=== PATIENT | female | born 1985 | race Caucasian/White ===

== ENCOUNTER 2023-01-28 09:49 | Outpatient (CLI) | payer OTHER, SELFPAY ==
--- NOTE | 2023-01-28 11:00 | NEURO_ITS ---
Impression: # Complains of numbness of hands. # Mild right Carpal Tunnel Syndrome. # No ulnar neuropathy. # Needle/EMG exam not requested. Nerve Conduction Studies Anti Sensory Summary Table Stim Site NR Peak (ms) P-T Amp (?V) Site1 Site2 Delta-P (ms) Dist (cm) John (m/s) Left Median Anti Sensory (2-3nd Digit) Wrist 2.8 73.9 Wrist 2-3nd Digit 2.8 14.0 50 Wrist 2.8 63.5 Wrist 2-3nd Digit 2.8 14.0 50 Right Median Anti Sensory (2-3nd Digit) Wrist 3.7 35.6 Wrist 2-3nd Digit 3.7 14.0 38 Wrist 3.8 30.9 Wrist 2-3nd Digit 3.7 14.0 38 Left Radial Anti Sensory (Base 1st Digit) Wrist 1.9 26.5 Wrist Base 1st Digit 1.9 0.0 Right Radial Anti Sensory (Base 1st Digit) Wrist 2.0 32.5 Wrist Base 1st Digit 2.0 0.0 Left Ulnar Anti Sensory (5th Digit) Wrist 2.0 89.2 Wrist 5th Digit 2.0 14.0 70 Right Ulnar Anti Sensory (5th Digit) Wrist 2.1 76.4 Wrist 5th Digit 2.1 14.0 67 Motor Summary Table Stim Site NR Onset (ms) O-P Amp (mV) Site1 Site2 Delta-0 (ms) Dist (cm) John (m/s) Left Median Motor (Abd Poll Brev) Wrist 2.8 4.0 Elbow Wrist 4.6 28.0 61 Elbow 7.4 2.5 Right Median Motor (Abd Poll Brev) Wrist 3.6 3.6 Elbow Wrist 4.9 28.0 57 Elbow 8.5 1.2 Left Ulnar Motor (Abd Dig Minimi) Wrist 2.4 7.4 A Elbow Wrist 4.9 29.0 59 A Elbow 7.3 5.2 Right Ulnar Motor (Abd Dig Minimi) Wrist 2.1 6.5 A Elbow Wrist 5.2 29.0 56 A Elbow 7.3 5.0 F Wave Studies NR F-Lat (ms) L-R F-Lat (ms) Left Median (Mrkrs) (Abd Poll Brev) 26.39 0.50 Right Median (Mrkrs) (Abd Poll Brev) 26.89 0.50 Left Ulnar (Mrkrs) (Abd Dig Min) 26.95 0.39 Right Ulnar (Mrkrs) (Abd Dig Min) 26.56 0.39 MTDD
== END 2023-01-28 09:50 | disposition home or self-care (01) ==
PROVIDERS: PCP Family Medicine; Visit Provider Physician Assistant
DX: G56.01 Carpal tunnel syndrome, right upper limb (principal)
CPT/HCPCS: 95911

== ENCOUNTER 2023-02-13 15:26 | Outpatient (CLI) | payer OTHER, SELFPAY | END 2023-02-13 15:27 | disposition home or self-care (01) | LOC: ANHLAB 15:28 | PROVIDERS: PCP Family Medicine; Visit Provider Obstetrics & Gynecology | DX: Z01.812 Encounter for preprocedural laboratory examination (principal); R10.2 Pelvic and perineal pain | CPT/HCPCS: 36415; 86850; 86900; 86901 ==

== ENCOUNTER 2023-02-14 01:29 | Day surgery (SDC) | payer OTHER, SELFPAY ==
[2023-02-05 17:12] VITALS: BMI 29.2
--- NOTE | 2023-02-05 17:40 | PC.NURSE ---
Report to the Outpatient Waiting Room, entrance under the green pavilion located off [facility], at 0630 on 02-14-23. Planned Procedure Time: 0830. Time changes happen often and if your time is changed the preop area will call you the afternoon before. - You and your visitor will be asked to self-screen and do not enter if you have any COVID symptoms. - A mask is optional within the hospital at this time. Patients may have clear liquids (water, carbonated beverages, clear teas, apple juice) until 3 hours prior to surgery with a maximum of 20 ounces. 0530 - No food from midnight until time of surgery - Infants may have breast milk until 4 hours before surgery, formula 6 hours prior to surgery. - Children will be allowed to drink immediately following surgery. If applicable, please bring a bottle or sippy cup to assist with drinking. Juice, water, soda, and popsicles are readily available. For infants on formula, please bring formula the day of surgery. Pacifiers are allowed. Take the following medications with a SIP of water the morning of surgery: bupropion, Symbicort; bring albuterol inhaler DOS DO NOT STOP ANY OF YOUR OTHER PRESCRIPTION MEDICATIONS PRIOR TO SURGERY ?EXCEPT THE FOLLOWING Medications to discontinue per physician: N/A Please no make-up, nail urdu, hairspray, perfume, deodorant, or body powder the day of surgery. No jewelry (including any body piercings) or valuables the day of surgery, leave them at home. Please take a shower or bath the night before, or the morning of, surgery with an antibacterial soap. Wear comfortable, loose fitting clothing. Children are encouraged to wear pajamas. - Jewelry must be removed prior to entering the operating room. Rings and piercings that are not removed may be cut off. - The hospital will not accept responsibility for valuables. - Please leave all valuables, including medications, at home the day of surgery. If you are going home after surgery, a licensed yard driver must drive you home. - NO public transportation without another adult if you receive anesthesia. - We recommend that an adult stay with you for 24 hours following discharge. - We also recommend that you do not drive, make important decision, drink alcoholic beverages, or take any drugs that were not prescribed by your health care provider for at least 24 hours after your discharge time. For Pediatric surgeries, we recommend two adults accompany the child home. Follow any additional instructions given to you from your surgeon. If you or anyone in your household have experienced Covid symptoms in the past week, please notify your surgeon or the nurse liaison at the phone number below for possible testing. Telephone instructions given to Evi Mac and asked if any additional questions and then verbalized understanding. Patient advised to call surgeon office or pre surgery nurse liaison [phone] if any additional questions.
--- NOTE | 2023-02-11 12:06 | PM.IMHP ---
H&P: HPI History of Present Illness Date/Time: 02/11/23 12:06 Chief Complaint: Pelvic pain Narrative: This is a 37 female 1 para admitted for diagnostic laparoscopy secondary to pelvic. She had ultrasound which did not show much of anything she has had negative STD testing. She will undergo a diagnostic laparoscopy. Risks and benefits reviewed including exclusive of , aspiration bleeding, transfusion, perforation injury to bowel, bladder, ureters, or other internal organs with the need for open laparotomy. She received the ACOG handout entitled laparoscopy. She had all questions answered. She asked to proceed [facility] Social History Social History Smoking packs per day: 0.75 Smoking cigarettes per day: 15.0 Years smoked: 20 Smoking pack-years: 15.00 Smoking status: Current every day smoker Tobacco type: cigarettes Second hand tobacco smoke exposure: No Alcohol intake: current Drinks per week: 6 Alcohol use details: occasionally Substance use: never Substance use type: marijuana Living arrangements: with family Spiritual care concerns: No Meds Home Medications and Allergies Home Medications Medication Instructions Recorded Confirmed Type albuterol sulfate 2.5 mg/3 mL 2.5 mg continuous nebulization QID 02/05/23 02/05/23 History (0.083 %) solution for nebulization albuterol sulfate 90 mcg/actuation 2 puff inhalation Q6H PRN 02/05/23 02/05/23 History aerosol inhaler Shortness Of Breath Or Wheezing budesonide-formoterol HFA 160 2 puff inhalation BID 02/05/23 02/05/23 History mcg-4.5 mcg/actuation aerosol inhaler (Symbicort) bupropion HCl 150 mg tablet,12 hr 150 mg PO DAILY 02/05/23 02/05/23 History sustained-release Allergies Allergy/AdvReac Type Severity Reaction Status Date / Time No Known Allergies Allergy Mild Verified 02/05/23 17:07 Exam Const: General: cooperative, healthy appearing, comfortable and average body habitus Orientation/consciousness: oriented to person, oriented to place and oriented to time HENMT: Head: normal to inspection Resp: Effort & Inspection: normal respiratory effort Cardio: Rate: regular rate Rhythm: regular rhythm Heart sounds: S1 normal heart sound present and S2 normal heart sound present GI: Inspection: normal to inspection : External Female Exam: normal external appearance Speculum Exam - Vagina: normal appearance of the vagina Speculum Exam - Cervix: normal appearance of the cervix Bimanual exam- vagina & uterus: uterine size normal Bimanual Exam- Adnexa, other: tender bilaterally Assessment and Plan Assessment and plan (1) Pelvic pain: Code(s): R10.2 - Pelvic and perineal pain Status: Acute Plan Diagnostic laparoscopy
[2023-02-14] VITALS (8 sets, daily range): BP systolic 96–126; BP diastolic 62–83; PULSE 52–74; RESP 13–18; TEMP 36.2–36.4; O2SAT 93–100
--- NOTE | 2023-02-14 06:18 | WPDHPUPDATE1 ---
History and Physical Update Update Date/Time: 02/14/23 06:18 History and Physical has been reviewed, including an updated exam of the patient. There are NO changes in the patient's condition. Risks, benefits, and alternatives have been discussed and questions answered. Patient agrees to proceed with procedure.
--- NOTE | 2023-02-14 08:10 | P.PNAN_ITS ---
Anes - Initial Pre Proc Eval Procedure: Operation Date: 02/14/23 08:30 Proposed Procedures p Diagnostic Laparoscopy - Jan Ragland MD Date/Time: 02/14/23 08:10 Surgeon: Jan Ragland MD Pre Op Diagnosis: Pelvic Pain, Irg Bleeding Patient Data Age: 37 Gender: F Height: 1.63 m Weight: 77.11 kg Allergies Allergy/AdvReac Type Severity Reaction Status Date / Time No Known Allergies Allergy Mild Verified 02/05/23 17:07 Home Medications Medication Instructions Recorded Confirmed Type albuterol sulfate 2.5 mg/3 mL 2.5 mg continuous nebulization QID 02/05/23 02/05/23 History (0.083 %) solution for nebulization albuterol sulfate 90 mcg/actuation 2 puff inhalation Q6H PRN 02/05/23 02/05/23 History aerosol inhaler Shortness Of Breath Or Wheezing budesonide-formoterol HFA 160 2 puff inhalation BID 02/05/23 02/05/23 History mcg-4.5 mcg/actuation aerosol inhaler (Symbicort) bupropion HCl 150 mg tablet,12 hr 150 mg PO DAILY 02/05/23 02/05/23 History sustained-release hydrocodone 5 mg-acetaminophen 325 1 tablet PO Q4H PRN pain #20 tabs 02/14/23 Rx mg tablet Patient hx anesthesia problems: none Family hx anesthesia problems: none Results Review: All pre-operative results and documents have been reviewed as part of the pre- operative evaluation. [facility] Social History Social History Smoking packs per day: 0.75 Smoking cigarettes per day: 15.0 Years smoked: 20 Smoking pack-years: 15.00 Smoking status: Current every day smoker Tobacco type: cigarettes Second hand tobacco smoke exposure: No Alcohol intake: current Drinks per week: 6 Alcohol use details: occasionally Substance use: never Substance use type: marijuana Living arrangements: with family Spiritual care concerns: No Anes - Eval Final PreProcedure Day of Procedure 02/14/23 08:10 Patient weight: overweight Heart: regular rate and rhythm Lungs: decreased breath sounds Airway: Mallampati scale class II Neurological: alert and oriented Last oral intake: >/= 8 hours ASA classification: III Emergent: no Anesthetic plan: proceed Anesthesia type and monitoring: general ETT and standard monitoring Results Review: All pre-operative results and documents have been reviewed as part of the pre- operative evaluation. Informed Consent: The patient's anesthetic plan and its attendant risks and benefits were discussed with the patient/family/POA. Questions were solicited and answers provided to the satisfaction of the patient/family/POA.
[2023-02-14] MEDS: LACTATED RINGERS 1,000 ML 30 ML IV CONT (08:30)
[2023-02-14] MEDS: KETOROLAC 15 MG/ML VIAL (*BKC) IV PUSH (08:30)
[2023-02-14] MEDS: ACETAMINOPHEN 500 MG TABLET 1000 MG PO (08:30)
--- NOTE | 2023-02-14 08:52 | W.PM.PROC2 ---
Procedure Note - Detailed Date of Procedure 02/14/23 Pre-op Diagnosis Pelvic Pain, Irg Bleeding Post-op Diagnosis Other (Endometriosis) Procedure Performed laparoscopic destruction of endometriosis Surgeon Jan Ragland MD Anesthesia General Indications this is the 37 year female with pelvic Findings endometrial implants along uterosacral ligaments. Small areas of endometriosis were seen on the ovaries. Normal-appearing uterus ovaries and tubes otherwise. The gallbladder appeared surgically absent Description of Procedure patient was prepped and draped in the normal sterile fashion placed in the dorsal lithotomy position. Under excellent general trach anesthesia weighted speculum placed in posterior fornix vagina. Anterior lip of the cervix grasped with single-tooth tenaculum. Sandoval's cannula inserted the cervix and then attached to the single-tooth to be used later for uterine manipulation. After emptying the bladder clear urine the weighted speculum was removed and the gloves were changed. A supraumbilical incision made the Veress needle passed in the abdomen. Abdomen filled with CO2 gas [id number]. The 5mm trocar advanced under direct visualization with the Optiview and no injury seen. Gas reattached patient placed in Trendelenburg. A suprapubic incision made the 5mm trocar advanced under direct visualization assuring injury. The above findings were seen in photo documentation undertaken using point cautery at 35 w per 2nd, this area of endometriosis were destroyed with monopolar cautery. On the ovaries were small pinpoint areas of endometriosis in these were individually burned at 35 w per 2nd with monopolar cautery. The remainder the pelvis appeared within normal limits. The gallbladder appeared surgically absent. The liver edge appeared within normal limits. The lower site removed. The gas removed from the abdomen. The upper site removed. The incisions closed with 4 Monocryl and glue after gas removed from the abdomen. Patient went recovery in satisfactory condition. All sponge, needle, instrument counts were correct. Estimated Blood Loss 5 Drains No Packing No Pathology None sent Complications No immediate complications Condition Stable Disposition PACU
[2023-02-14] MEDS: fentaNYL CITRATE INJ (*CRX) 100 MCG/2 ML VIAL 25 MCG IV PUSH ×3 (09:44→09:55)
[2023-02-14] MEDS: oxyCODONE HCL (*CRX) 5 MG TAB IR PO (10:30)
== END 2023-02-14 11:10 | disposition home or self-care (01) ==
PROVIDERS: PCP Family Medicine; Visit Provider Obstetrics & Gynecology
PROC: (CPT 49320; principal; 2023-02-14 08:30)
DX: N80.103 Endometriosis of bilateral ovaries, unspecified depth (principal); N80.3C3 Endometriosis of bilateral uterosacral ligament(s), unspecified depth; N93.9 Abnormal uterine and vaginal bleeding, unspecified; Z79.51 Long term (current) use of inhaled steroids; F17.210 Nicotine dependence, cigarettes, uncomplicated
CPT/HCPCS: 58662; A9270; J0330; J1100; J1885; J2250; J2405; J2704; J3010; J7120

== ENCOUNTER 2023-05-19 09:40 | Outpatient (CLI) | payer OTHER, SELFPAY ==
--- NOTE | ~2023-05-19 | CT_ITS ---
CT Scan of the Chest without Contrast: Clinical Indication: Shortness of breath Technique: Contiguous sections were acquired throughout the chest without intravenous contrast. Dose reduction technique was used on this scan by utilizing automated exposure control and iterative recon struction technique. The dose-length product (DLP) was 238.44 mGy-cm. Findings: There is no evidence of any significant mediastinal, hilar or axillary lymphadenopathy. The mediastin al soft tissues appear normal. There is no evidence of pleural or pericardial effusion. There are probable extensive tiny tree-in-bud opacities and irregular groundglass centrilobular nodul es in the right upper lobe, to 6 cm and the left upper lobe and right lower lobe. Images through the upper abdomen reveal no abnormalities. Impression: Extensive subtle tree-in-bud opacities and centrilobular nodules, as detailed above. Findings most li kev represent small airways infectious process. Reviewed, dictated and finalized at [facility]. [employer]ALL IN[employer]ATIONS MECH[employer]IC Impression: Extensive subtle tree-in-bud opacities and centrilobular nodules, as detailed teetee kirk. Findings most likely represent small airways infectious process.
== END 2023-05-19 09:41 | disposition home or self-care (01) ==
LOC: CHSIMG 09:43
PROVIDERS: PCP Family Medicine; Visit Provider Family Medicine
DX: R06.02 Shortness of breath (principal)
CPT/HCPCS: 71250

== ENCOUNTER 2023-12-08 11:29 | Outpatient (CLI) | payer OTHER, SELFPAY ==
[2023-12-08 11:48] LABS: Basophils Absolute Auto 0.1 K/mm3 (0.0-0.1); Basophils Percent Auto 0.7 % (0.2-1.2); Eosinophils Absolute Auto 0.3 K/mm3 (0-0.3); Eosinophils Percent Auto 2.3 % (0-4.4); Hematocrit 40.7 % (37.0-47.0); Hemoglobin 13.8 g/dL (12.0-15.0); Immature Granulocyte Absolute 0.05 K/mm3 (0.00-0.031); Immature Granulocyte Percent A 0.4 % (0-0.5); Lymphocytes Absolute Auto 3.03 K/mm3 (0.9-3.2); Lymphocytes Percent Auto 22.7 % (18.3-44.2); Mean Corpuscular HGB Conc 33.9 g/dl (32-36); Mean Corpuscular Hemoglobin 31.7 pg (26-34); Mean Corpuscular Volume 93.6 fl (80-100); Mean Platelet Volume 8.7 fl (7.4-10.4); Monocytes Absolute Auto 0.7 K/mm3 (0.1-0.6); Monocytes Percent Auto 5.2 % (2.6-8.5); Neutrophils Absolute Auto 9.2 K/mm3 (1.3-6.7); Neutrophils Percent Auto 68.7 % (45.5-73.1); Platelet Count Result 380 k/mm3 (150-375); Red Blood Count 4.35 M/mm3 (4.2-5.4); Red Cell Distribution Width 12.4 % (11.5-14.5); White Blood Count 13.4 K/mm3 (4.5-10.0)
[2023-12-08 12:31] LABS: Alanine Aminotransferase 23 U/L (6-35); Albumin Level 4.5 g/dL (3.5-5.1); Alkaline Phosphatase 48 U/L (38-126); Anion Gap 9 mmol/L (4-12); Aspartate Amino Transferase 22 U/L (14-36); Bilirubin,Total 0.4 mg/dL (0.2-1.3); Blood Urea Nitrogen 11 mg/dL (7-17); CRP 0.7 mg/dL (<1.0); Calcium 9.2 mg/dL (8.4-10.2); Carbon Dioxide 26 mmol/L (22-30); Chloride 102 mmol/L (98-107); Estimated Glomerular Filt Rate > 60; Glucose 84 mg/dL (65-110); Potassium 3.7 mmol/L (3.4-5.0); Sodium 137 mmol/L (137-145)
== END 2023-12-08 11:30 | disposition home or self-care (01) ==
LOC: ANHLAB 11:30
PROVIDERS: PCP Family Medicine; Visit Provider Internal Medicine Hematology & Oncology
DX: D18.1 Lymphangioma, any site (principal)
CPT/HCPCS: 36415; 80053; 85025; 86140

== ENCOUNTER 2024-08-03 07:55 | Outpatient (CLI) | payer MEDICAID, SELFPAY ==
--- NOTE | ~2024-08-03 | CT_ITS ---
CT of the Abdomen and Pelvis: Indication: Lymphangioma Technique: 2.5 mm axial scans were obtained through the abdomen and pelvis following intravenous adm inistration of 100 cc of Omnipaque 350. Dose reduction technique was used on this scan by utilizing a utomated exposure control and iterative reconstruction technique. The dose-length product (DLP) was 7 47.52 mGy-cm. COMPARISON: 05/19/2023 Findings: Scans through the lung bases are unremarkable. The liver, spleen, pancreas, adrenals and kidneys are within normal limits. Cholecystectomy clips are present. Stable multiloculated cystic mass in the left upper quadrant of the splenic hilum region pa ncreatic tail. No evidence of aortic aneurysm. No lymphadenopathy. No bowel obstruction or bowel wall thickening. There is no evidence to suggest acute appendicitis. Images through the pelvis were performed. Urinary bladder unremarkable. No pelvic mass seen. No ascit es. Impression: Stable multiloculated cystic mass at the left upper quadrant, as above, compatible with hemangioma. Reviewed, dictated and finalized at location . [employer] Impression: Stable multiloculated cystic mass at the left upper quadrant, as above, compati ble with hemangioma.
--- OUTSIDE RECORDS SUMMARY | 2024-08-03 08:06 | XMS_ITS | Encounter Summary ---
Author Organization [facility] Address [facility] 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
--- OUTSIDE RECORDS SUMMARY | 2024-08-03 08:06 | XMS_ITS | Referral Summary ---
Author Organization [facility] Address [address] [place] [address] Care Team Providers Care Web Developer Name Role Phone Leonel Degroot MD Primary Care Provider [phone] Source Comments [facility],non-owned Affiliates and Associated Physician Practices is amultiple site organization consisting of ambulatory clinics and hospital sitesin [place], [place], [place] and [place]. This disclosure is being madepursuant to the Care Everywhere program and may not contain all information available regarding this patient. Last updated 18.[facility] Dash Allergies No known active allergies Medications * Be aware that medications may not be up to date on this document. Alwaysverify current medications with the patient. Medication Sig Dispensed Refills Start Date End Date Status PROAIR HFA 108 (90 BASE) MCG/ACT inhaler Inhale 2 puffs by mouth as needed 11/10/2017 Active erythromycin (ERYDERM) 2 % solutionIndications:Hi dradenitis suppurativa Apply to armpits area daily. 30 days supply. 60 mL 3 02/05/2018 Active Active Problems Problem Noted Date Diagnosed Date Hidradenitis suppurativa 02/05/2018 Social History Tobacco Use Types Packs/Day Years Used Date Smoking Tobacco: Every Day Cigarettes 1 20 Smokeless Tobacco: Never Alcohol Use Standard Drinks/Week Comments Yes 5 (1 standard drink = 0.6 oz pur e alcohol) Ocassionally Sex and Gender Information Value Date Recorded Sex Assigned at Not on file Gender Identity Not on file Sexual Orientation Not on file Plan of Treatment Not on file Care Teams Web Developer Relationship Specialty Start Date End Date Leonel Degroot MD [address] [place] [id number] PCP - General 02/05/18
--- OUTSIDE RECORDS SUMMARY | 2024-08-03 08:06 | XMS_ITS ---
Author Organization Unknown Address [address] [place] [phone] Phone Care Team Providers Care Assembler Lay Ups Name Role Phone JOSE R TALAMANTES Attending Unavailable TALISHA Hernandes Primary Unavailable Immunization Immunization Date Status Additional Notes Code Code System DTP 1983 Completed CVX DTP 02/11/1984 Completed CVX DTP 08/25/1984 Completed CVX DTP 04/11/1987 Completed CVX DTP 10/16/1988 Completed CVX OPV 1983 Completed CVX OPV 02/11/1984 Completed CVX OPV 08/25/1984 Completed 02 CVX OPV 04/11/1987 Completed 02 CVX OPV 10/16/1988 Completed 02 CVX MMR 12/06/1986 Completed 03 CVX MMR 02/23/1993 Completed 03 CVX Hep B, adolescent or pediatric 02/28/1998 Completed 08 CVX Hep B, adolescent or pediatric 03/28/1998 Completed 08 CVX Hep B, adolescent or pediatric 03/03/2001 Completed 08 CVX Td (adult), 2 Lf tetanus toxoid, preservative free, adsorbed 02/28/1998 Completed 09 CVX Results BUN/CREAT - Collect Date/David e: 10/30/2023 10:55 [facility] ID: [id number] [place] [address], [id number] LOINC: 3097-3 Test Value Unit Reference Range Code Code System Flag BUN 14 mg/dL L=7 H=20 3094-0 LOINC CREATININE 0.50 mg/dL L=0.52 H=1.04 2160-0 LOINC L AGE 38 [address]-6 LOINC eGFR NON-AFR 145 ml/min eGFR AFR AMER 175 ml/min MRI ABDOMEN W+WO CONTRAST - Completed: 10/30/2023 10:46 LOINC: EXAM DESCRIPTION: MRI ABDOMEN W+WO CONTRAST REASON FOR STUDY: Renal protocol MRI w/wo contrast with delayed imaging. 09/29/23 CT demonstrated a 1.2 cm left renal fluid density focus and indeterminate nodules adjacent to the spleen; +/-2 yrs of epigastric/RUQ/LUQ sharp, intermittent pains, particularly after large meals; cholecystectomy in Apr; hx of endometriosis and polycystic ovarian syndrome. No traumatic incidents noted. Duration: 2 yrs of s/s, 1 mo. since incidental findings. Previous Surgery: CHOLECYSTECTOMY, UMBILICAL HERNIA REPAIR, AND ENDOMETRIAL ADHESION REMOVAL (ALL IN 2022). TECHNIQUE: MRI of the abdomen performed without and with intravenous contrast according to the renal protocol. All images stored on PACS. CONTRAST TYPE/DOSE: 15 mL of ProHance injected via left antecubital fossa vein COMPARISON: CT dated September 29, 2023 FINDINGS: LOWER CHEST: No effusion. LIVER: Normal size. No mass. No cysts. GALLBLADDER: Surgically absent BILE DUCTS: No intrahepatic or extrahepatic ductal dilatation. SPLEEN: Normal size. No focal lesions. PANCREAS: No masses. No adjacent inflammation or peripancreatic fluid collections. Pancreatic duct not dilated ADRENALS: Normal. KIDNEYS/URINARY TRACT: No solid masses. Bilateral cysts. No hydronephrosis or hydroureter. Symmetric enhancement. GI: No visualized abnormality. PERITONEUM: No ascites. RETROPERITONEUM: No mass or adenopathy. VASCULATURE: No abdominal aortic aneurysm. MUSCULOSKELETAL: No acute findings. OTHER: At the level of the nsplenic hilum there is a multilobulated T2 hyperintense cystic structure collectively measuring approximately 3.8 x 3.1 cm. There is no evidence of restricted diffusion. No microscopic or macroscopic fat. On precontrast T1 fat saturated sequences appears hypointense. There is no enhancement on postcontrast imaging. This is favored to represent a lymphangioma. IMPRESSION: ? ? Bilateral renal cysts. No concerning renal lesion identified. ? ? 3.8 x 3.1 cm multilobulated cystic structure at the level of the splenic hilum corresponding to area of concern on recent CT scan. This is favored to represent a lymphangioma. THIS IS AN ELECTRONICALLY VERIFIED FINAL REPORT 10/30/2023 1:38 PM - Electronically signed by Dustin Prado M.D. JA: CARL Report ID: [id number] Reading Location: [id number] Social History Type Status Start Date End Date Code Code Syst em Smoking History Unknown if ever smoked [id number] Sex Female Medications Medication Start Date End Date Route Frequency Dose Code Code System Medication Instructions Home Meds Albuterol Sulfate 0.5% Inhalation Solution 10/25/2021 Unknown INHALATION NEEDED 4 TIMES A DAY 1 unit(s) 685588 RxNorm 1 EACH INHALATION NEEDED 4 TIMES A DAY Ipratropium [place] terol Sulfate 0.5MG/3ML-3M G/3ML Inhalation Solution 10/25/2021 Unknown INHALATION EVERY 6 HOURS 3 unit(s) 5574452 RxNorm 3 EACH INHALATION EVERY 6 HOURS ProAir HFA 0.09MG/1Actu ation Inhalation Suspension 10/25/2021 Unknown INHALATION NEEDED 4 TIMES A DAY 2 unit(s) 349023 RxNorm 2 EACH INHALATION NEEDED 4 TIMES A DAY Symbicort 160/4.5 160MCG-4.5MC G/1 Actu Inhalation Aerosol Liquid 10/25/2021 Unknown INHALATION TWICE A DAY 2 unit(s) [id number] RxNorm 2 EACH INHALATION TWICE A DAY Wellbutrin SR 150MG Oral Tablet, Extended Release, 12 HR 10/25/2021 Unknown ORAL TWICE A DAY 150 MILLIGRAMS [id number] RxNorm TAKE 150 MILLIGRAMS ORAL TWICE A DAY Meloxicam 15MG Oral Tablet 12/28/2021 Unknown ORAL ONCE A DAY 15 MILLIGRAMS [id number] RxNorm TAKE 15 MILLIGRAMS ORAL ONCE A DAY Omeprazole 40MG Oral Capsule, Delayed Release 04/01/2022 Unknown ORAL ONCE A DAY 40 MILLIGRAMS [id number] RxNorm TAKE 40 MILLIGRAMS ORAL ONCE A DAY Hospital Discharge Instructions Should you have any questions prior to discharge, please contact a member of your healthcare team. If you have left the hospital and have any questions, please contact your primary care physician. Reason For Referral No Data Found Allergies and Adverse Reactions Allergy Substance Reaction Severity Start Date Concern Status Co de Code System No Known Drug Allergies Active [id number] SNOMED-CT Plan of Treatment Pinky Established Patient 025 Digital Razia Screen Bilateral (52935) Encounters Encounter Diagnosis Start Date Code Code Sys tem Abnormal findings on diagnos tic imaging of other abdominal regions, including retroperitoneum 10/30/2023 SNOMED-CT Personal Care Team Section Performer Name Performer Role Active Date Inactive Da te Imaging Narrative Notes
--- OUTSIDE RECORDS SUMMARY | 2024-08-03 08:06 | XMS_ITS ---
Author Organization Unknown Address [address] [place] [address] [phone] Phone Care Team Providers Care Assembly Detailer Name Role Phone SILVERIO SULLY Attending Unavailable TALISHA Hernandes Primary Unavailable Immunization [...] preservative free, adsorbed 02/28/1998 Completed 09 CVX Social History Type Status Start Date End Date Code Code Syst em Smoking History Unknown if ever smoked [id number] Sex Female Medications Medication Start Date End Date Route Frequency Dose Code Code System Medication Instructions Home Meds Albuterol Sulfate 0.5% Inhalation Solution 10/25/2021 Unknown INHALATION NEEDED 4 TIMES A DAY 1 unit(s) 012473 RxNorm 1 EACH INHALATION NEEDED 4 TIMES A DAY Ipratropium [place]-Albu terol Sulfate 0.5MG/3ML-3M G/3ML Inhalation Solution 10/25/2021 Unknown INHALATION EVERY 6 HOURS 3 unit(s) 5756746 RxNorm 3 EACH INHALATION EVERY 6 HOURS ProAir HFA 0.09MG/1Actu ation Inhalation Suspension 10/25/2021 Unknown INHALATION NEEDED 4 TIMES A DAY 2 unit(s) 321325 RxNorm 2 EACH INHALATION NEEDED 4 TIMES A DAY Symbicort 160/4.5 160MCG-4.5MC G/1 Actu Inhalation Aerosol Liquid 10/25/2021 Unknown INHALATION TWICE A DAY 2 unit(s) 4070970 RxNorm 2 EACH INHALATION TWICE A DAY Wellbutrin SR 150MG Oral Tablet, Extended Release, 12 HR 10/25/2021 Unknown ORAL TWICE A DAY 150 MILLIGRAMS [id number] RxNorm TAKE 150 MILLIGRAMS ORAL TWICE A DAY Meloxicam 15MG Oral Tablet 12/28/2021 Unknown ORAL ONCE A DAY 15 MILLIGRAMS [id number] RxNorm TAKE 15 MILLIGRAMS ORAL ONCE A DAY Omeprazole 40MG Oral Capsule, Delayed Release 04/01/2022 Unknown ORAL ONCE A DAY 40 MILLIGRAMS [id number] RxNorm TAKE 40 MILLIGRAMS ORAL ONCE A [...] Code System No Known Drug Allergies Active [id number] SNOMED-CT Plan of Treatment Terryroberto carlosjc Established Patient 025 Digital Razia Screen Bilateral (58523) Encounters Encounter Diagnosis Start Date Code Code Sys tem Chest pain, unspecified 01/27/2024 SNOM ED-CT Personal Care Team Section Performer Name Performer Role Active Date Inactive Da te
--- OUTSIDE RECORDS SUMMARY | 2024-08-03 08:06 | XMS_ITS | Clinical Summary ---
Author Organization [facility] Address [address] [place] [address] Care Team Providers Care Voice Network Engineer Name Role Phone Leonel Degroot MD Primary Care Provider [phone] [facility],non-owned Affiliates and Associated Physician Practices is amultiple site organization consisting of ambulatory clinics and hospital sitesin [place], [place], [place] and [place]. This disclosure is being madepursuant to the Care Everywhere program and may not contain all information available regarding this patient. Last updated 18.[facility] Allergies No known active allergies Medications * [...] Noted Date Diagnosed Date Hidradenitis suppurativa 02/05/2018 Family History Medical History Relation Name Comments Asthma Neg Hx CVA Neg Hx Cancer - Breast Neg Hx Cancer - Other Neg Hx Cancer - Skin, Melanoma Neg Hx Cancer - Skin, Non Melanoma Neg Hx Eczema Neg Hx Hemophilia Neg Hx Psoriasis Neg Hx Social History Tobacco Use Types Packs/Day Years Used Date Smoking Tobacco: Every Day Cigarettes 1 20 Smokeless Tobacco: Never Alcohol Use Standard Drinks/Week Comments Yes 5 (1 standard drink = 0.6 oz pur e alcohol) Ocassionally Sex and Gender Information Value Date Recorded Sex Assigned at Not on file Gender Identity Not on file Sexual Orientation Not on file Plan of Treatment Health Maintenance Due Date Last Done Comments LIPID TESTING 1983 MAMMOGRAM 1983 PAP SMEAR 1983 HIV SCREENING 1998 HEPATITIS C SCREENING 07/10/2001 DTAP/TDAP/TD VACCINES (1 - Tdap) 2002 HEPATITIS B VACCINE (1 of 3 - 19+ 3-dose series) 2002 PNEUMOCOCCAL VACCINE (1 of 2 - PCV) 2002 COVID-19 VACCINE (1 - 2023-2 5 season) 2024 INFLUENZA VACCINE (#1) 2024 DEPRESSION SCREENING 07/07/2024 ZOSTER VACCINE (1 of 2) 2033 HIB VACCINE Aged Out No longer eligi ble based on patient's age to complete this topic HPV VACCINE Aged Out No longer eligi ble based on patient's age to complete this topic MENINGOCOCCAL (Group B) VACCINE Aged Out No longer eligible based on patient's age to complete this topic MENINGOCOCCAL VACCINE Aged Out No marichuy crys eligible based on patient's age to complete this topic Care Teams Voice Network Engineer Relationship Specialty Start Date End Date Leonel Degroot MD [address] [place] [phone] PCP - General 02/05/18
--- OUTSIDE RECORDS SUMMARY | 2024-08-03 08:06 | XMS_ITS ---
Author Organization Unknown Address [address] [place] [address] [phone] Phone Care Team Providers Care Septic Tank Service Technician Name Role Phone HOLLI SAEED Attending Unavailable TALISHA Hernandes Primary Unavailable Immunization [...] Smoking History Unknown if ever smoked [id number] Sex Female Medications Medication Start Date End Date Route Frequency Dose Code Code System Medication Instructions Home Meds Albuterol Sulfate 0.5% Inhalation Solution 10/25/2021 Unknown INHALATION NEEDED 4 TIMES A DAY 1 unit(s) 036622 RxNorm 1 EACH INHALATION NEEDED 4 TIMES A DAY Ipratropium [place]-Albu terol Sulfate 0.5MG/3ML-3M G/3ML Inhalation Solution 10/25/2021 Unknown INHALATION EVERY 6 HOURS 3 unit(s) 9420147 RxNorm 3 EACH INHALATION EVERY 6 HOURS ProAir HFA 0.09MG/1Actu ation Inhalation Suspension 10/25/2021 Unknown INHALATION NEEDED 4 TIMES A DAY 2 unit(s) 161272 RxNorm 2 EACH INHALATION NEEDED 4 TIMES A DAY Symbicort 160/4.5 160MCG-4.5MC G/1 Actu Inhalation Aerosol Liquid 10/25/2021 Unknown INHALATION TWICE A DAY 2 unit(s) 7193822 RxNorm 2 EACH INHALATION TWICE A DAY Wellbutrin SR 150MG Oral Tablet, Extended Release, 12 HR 10/25/2021 Unknown ORAL TWICE A DAY 150 MILLIGRAMS [id number] RxNorm TAKE 150 MILLIGRAMS ORAL TWICE A DAY Meloxicam 15MG Oral Tablet 12/28/2021 Unknown ORAL ONCE A DAY 15 MILLIGRAMS [id number] RxNorm TAKE 15 MILLIGRAMS ORAL ONCE A DAY Omeprazole 40MG Oral Capsule, Delayed Release 04/01/2022 Unknown ORAL ONCE A DAY 40 MILLIGRAMS [id number] RxNorm TAKE 40 MILLIGRAMS ORAL ONCE A [...] Code System No Known Drug Allergies Active [id number] [facility]-CT Plan of Treatment Terryroberto carlosjc Established Patient 025 Digital Razia Screen Bilateral (56161) Encounters Encounter Diagnosis Start Date Code Code Sys tem Canceled operative procedure 11/19/2023 [id number] [facility]-CT Personal Care Team Section Performer Name Performer Role Active Date Inactive Da kavon
--- OUTSIDE RECORDS SUMMARY | 2024-08-03 08:06 | XMS_ITS | Patient Health Summary ---
Author Organization [facility] Address [address] [place] [address] Care Team Providers Care Technical Operator Name Role Phone Leonel Degroot MD Primary Care Provider [phone] Note from [facility],non-owned Affiliates and Associated Physician Practices is amultiple site organization consisting of ambulatory clinics and hospital sitesin [place], [place], [place] and [place]. This disclosure is being madepursuant to the Care Everywhere program and may not contain all information available regarding this patient. Last updated 18.[facility] Done In :60 Seconds Allergies No known active allergies Medications * Be aware that medications may not be up to date on this document. Alwaysverify current medications with the patient. * PROAIR HFA 108 (90 BASE) MCG/ACT inhaler(Started 11/10/2017) Inhale 2 puffs by mouth as needed * erythromycin (ERYDERM) 2 % solution(Started 02/05/2018) Apply to armpits area daily. 30 days supply. 3 refills remaining Active Problems Problem Noted Date Diagnosed Date [...] on file Sexual Orientation Not on file Care Teams Technical Operator Relationship Specialty Start Date End Date Leonel Degroot MD [address] [place] [phone] [facility] - General 02/05/18
--- OUTSIDE RECORDS SUMMARY | 2024-08-03 08:06 | XMS_ITS | Data Portability ---
Author Organization [facility] [employer], 800 [facility] Neurology ([place]) Address [address] [address] Care Team Providers Care Bread Packer Name Role Phone SUN [place]K Primary Care Provider Assessment No assessment recorded. Plan of Treatment Reminders Order Date Submit Date Provider Last Modified By Organization Details Last Modified Time Details Appointments Establ edel barnes 10.EST 2024 09:30A M Dr. Melva Goodwin Not available Not available Not available Lab None record ed. Referral None record ed. Procedures None record ed. Surgeries None record ed. Imaging None record ed. Medication Orders None record ed. Patient TargetsNo targets recorded. Patient InstructionsNo instructions recorded. Reason for Referral None Reported. Results Created Date Observation Date Name Description Value Unit Range Abnormal Flag Note LastModifiedBy Organization Detail LastModifiedTime 02/02/20 24 02/02/2024 tuan tammymarcella cardonagr am, routi ne ECG, 12 leads min No observ ation record ed. [facility] Only - [facility] [address] [address], [place], [address], 02/04/2024 16:05:41 02/26/20 24 02/19/2024 laura michelle* No observ ation record ed. [email or web address] Not Available 2023 11:39:16 02/27/20 laura michelle* Conclu myron: 1. Exerci se EKG testin g sugges tive of ischem ia. 2. Averag e exerci se capaci ty. 3. Hypert ensive respon se to exerci se. 4. Please consid er CTA borja ry Interp retati on: Exerci se EKG testin g sugges tive of ischem ia. Baseli ne EKG: Sinus rhythm withou t any signif icant ST-T wave change s Stress EKG: Border line ST depres myron in infero latera l leads Exerci se Durati on: 8 minute s 9 second s METS Score: 9 Exerci se capaci ty: Averag e BP respon se: Hypert ensive Target heart rate: 153 (85% of age predic mary heart rate) Arrhyt hmias: None Sympto ms: Dyspne a and fatigu e tcowden Not Available 2023 09:30:37 03/11/20 24 03/10/2024 trans -thor acic echoc ardio gram (TTE) (PROC ) [facility] [address] [facility] [address] Adult Echoca rdiogr am Report Name: Julio PHILLIPS Study Date: 2023 : 1985 [id number] Gender : Female Age: 38 yrs Height : 64 in Weight : 190 lb BSA: 1.9 m2 Orderi ng Physic winsome: Ivy Goodwin MD Reason For Study: Chest Pain R07.9 Patien t Locati on: CARDIO LOGY Indica tion: Sonogr apher: PC Interp retati on Summar y The right ventri anna is normal in size and functi on. Left Ventri cular Ejecti on Fracti on = 56 %. Left ventri cular systol ic functi on is normal . PROCED URE DETAIL S: A comple te transt horaci c echoca rdiogr am was perfor med (2D; M-mode ; spectr al and color flow Dopple r). The study was techni eric adequa te. LEFT VENTRI ANNA: The left ventri anna is dilate d. There is normal left ventri cular wall thickn ess. The left ventri cular mass index is normal when correc mary for BSA and gender . Left Ventri cular Ejecti on Fracti on = 56 %. Left ventri cular systol ic functi on is normal . No region al wall motion abnorm alitie s noted. LEFT ATRIUM /ATRIA L SEPTUM : The left atrial volume index is normal by BSA and gender . No eviden ce for atrial shunti ng by color Dopple r. RIGHT ATRIUM : The right atrial volume index is normal when correc mary for BSA and gender . RIGHT VENTRI ANNA: TAPSE is normal at 1.8cm (> or =1.7cm is normal ). The right ventri anna is normal in size and functi on. AORTIC VALVE: The aortic valve is not well visual ized. The aortic valve leafle ts are thin and pliabl e. The aortic valve opens well. There is no eviden ce of aortic stenos is. There is no aortic regurg itatio n noted. MITRAL VALVE: The mitral valve leafle ts are thin and pliabl e. The mitral valve opens well. There is no mitral valve stenos is. There is trace mitral regurg itatio n. TRICUS PID VALVE: The tricus pid valve leafle ts are thin and pliabl e. There is no tricus pid stenos is. Estima mary right atrial pressu re is 3 mmHg. There is mild tricus pid regurg itatio n. Right ventri cular systol ic pressu re as measur ed by Dopple r is 10.1 mmHg. Right ventri cular systol ic pressu re is normal at <20 mmHg. PULMON IC VALVE: The pulmon ic valve is not well visual ized. There is no pulmon ic valvul ar stenos is. There is no pulmon ic valvul ar regurg itatio n noted on this exam. ARTERI ES: The sinus( es) of Valsal va measur es 3.3 which is within normal limits when correc mary for BSA and age. The ascend ing aorta measur es 3.4 cm, which is within normal limits when correc mary for BSA and gender . The pulmon kenn artery is not well visual ized. VENOUS : Normal pulmon kenn vein flow patter ns, consis tent with normal left atrial pressu re. The inferi or vena cava is normal in size, with normal respir atory variat ion. PERICA RDIUM/ PLEURA : There is a clear space around the heart noted, speckl ed appear ance sugges ts adipos e tissue rather than perica rdial effusi on. There is no pleura l effusi on. MMode/ 2D Measur ements IVSd: 0.87 cm LVIDd: 5.4 cm LVIDs: 3.3 cm LVPWd: 0.92 cm LV mass(C )d: 179.7 grams LV mass Index: 93.9 grams/ m2 Ao sinus of Valsal va diam: 3.3 cm Asc Ao: 3.4 cm LVOT diam: 2.3 cm LVOT area: 4.2 cm2 RAd major (vol): 4.0 cm LVAd ap4: 28.3 cm2 LVLd ap4: 8.0 cm EDV(MO D-sp4) : 83.9 ml LVAs ap4: 18.1 cm2 LVLs ap4: 6.6 cm ESV(MO D-sp4) : 40.7 ml EF(MOD -sp4): 51.4 % LVAd ap2: 25.5 cm2 LVLd ap2: 7.6 cm EDV(MO D-sp2) : 71.5 ml LVAs ap2: 13.7 cm2 LVLs ap2: 6.3 cm ESV(MO D-sp2) : 26.9 ml EF(MOD -sp2): 62.4 % EDV(MO D-bp): 79.7 ml ESV(MO D-bp): 35.1 ml EF(MOD -bp): 56.0 % CO(MOD -bp): 2.9 l/min CI(MOD -bp): 1.5 l/min/ m2 SV(MOD -bp): 44.6 ml SI(MOD -bp): 23.3 ml/m2 TAPSE_ phl: 1.8 cm EDV(MO D-bp) Index: 41.6 ml/m2 LA vol: 40.8 ml LA vol index: 21.3 ml/m2 RA area: 10.9 cm2 RA Volume : 25.3 ml RA Volume Index: 13.2 ml/m2 Time Measur ements MM R-R int: 0.91 sec Dopple r Measur ements MV E max raymond: 74.2 cm/sec MV A max raymond: 68.9 cm/sec MV E/A: 1.1 MV dec time: 0.27 sec MV V2 max: 95.4 cm/sec MV max P.6 mmHg MV V2 mean: 48.7 cm/sec MV mean P.2 mmHg MV V2 VTI: 27.1 cm MVA(VT I): 3.2 cm2 MV P1/2t max raymond: 88.4 cm/sec MV P1/2t: 78.1 msec MVA(P1 /2t): 2.8 cm2 MV dec slope: 331.4 cm/sec 2 AV max: 124.9 cm/sec Ao max P.3 mmHg SONI(V, D): 3.3 cm2 LVOT max P.0 mmHg LVOT mean P.0 mmHg LVOT max: 100.2 cm/sec LVOT mean: 64.6 cm/sec LVOT VTI: 20.7 cm SV(LVO T): 86.0 ml TV E max raymond: 52.4 cm/sec TV A max raymond: 51.4 cm/sec TV E/A: 1.0 PV max: 86.3 cm/sec PV max P.0 mmHg TR max raymond: 132.6 cm/sec TR max P.1 mmHg RVSP(T R): 10.1 mmHg RAP systol e: 3.0 mmHg SONI (Dimen sionle ss Index) : 0.80 MV E' avg (septa l MV E/E' avg ratio: 10.4 SV(LVO T) Index: 44.9 Electr onical ly signed by:Trae Goodwin MD 2023 12:25 PM cc: Julio Phillips 2023 CARDIO ECHO tcowden [facility] [address] [place], [address], 03/16/2024 12:46:26 03/24/20 24 03/24/2024 CT, angio gram, heart , w/wo contr [facility] [address] [place] [address] Name: JULIO PHILLIPS 5 Age: 38 : 1985 Exam Date: 2023 ACCESS ION: [id number] ORDERI NG MD: IVY GOODWIN EXAM: 1. CTA of the heart. 2. Limite d CT of the chest HISTOR Y: Patien t presen ts with chest pain, shortn ess of breath and syncop e onset 1.5 yrs ago. Curren t smoker . Histor y of COPD, Asthma , emphys landon, and high choles terol. Patien t denies family histor y of cardia c diseas e. TECHNI QUE: CTA of the heart and limite d CT of the chest with IV contra st was perfor med accord ing to the borja ry artery protoc ol using Retros pectiv e ECG trigge ring. The heart rate at the time of acquis ition was 79. 100 ml of Omnipa que 350 was inject ed throug h the RACF withou t eviden ce of advers e reacti on. 3D imagin g and MPR's were recons tructe d by the [facility] Automa mary exposu re contro l was used for dose optimi zation on this exam. CTDIvo l in mGy: 85.63 DLP in mGy-cm : 1439 MEDICA TIONS: 0 mg of IV metopr olol were admini stered prior to scanni ng. 0.4 mg of subing uinal nitrog lyceri n was admini stered immedi ately prior to scanni ng. COMPAR KAMAR: None FINDIN GS: VASCUL AR: The borja ry arteri es have a normal origin . There is right borja ry artery domina nce. The child therapist ior descen ding artery (PDA) is patent . Left Main: The left main borja ry artery is a medium size vessel and bifurc ates into the left anteri or descen ding (LAD) and left circum flex (LCX). LAD: Patent with no eviden ce of plaque or stenos is. It gives off patent diagon al branch es. LCX: Patent with no eviden ce of plaque or stenos is. It gives off patent obtuse margin al branch es. RCA: Patent with no eviden ce of plaque or stenos is. The pulmon kenn arteri es are normal in course and calibe r. The enhanc ed vascul ar struct ures are otherw ise unrema rkable . CHEST: Heart/ Perica rdium: The heart is normal in size. No perica rdial effusi on or calcif icatio n. There is no thicke paolo or calcif icatio ns of the aortic and mitral valves . Medias tinum/ Joellen: Scatte red subcen timete r medias tinal lymph nodes are presen t. Lungs/ Pleura : Scatte red centri lobula r ground -glass nodule s are seen throug hout the lungs. The lungs are free of acute focal consol idatio n. No suspic ious pulmon kenn nodule s are seen. No pneumo thorax or pleura l effusi on is presen t. Chest Wall: The chest wall is unrema rkable . Abdome n: The visual ized viscer al struct ures in the abdome n are unrema rkable . MUSCUL OSKELE VAL: The osseou s struct ures are intact . Mild degene rative change s are seen in the thorac ic spine. IMPRES MYRON: 1. No CT eviden ce of borja ry artery diseas e. 2. Respir atory bronch ioliti s. ASSESS MENT: CAD-RA DS 0: No borja ry artery diseas e. Final Report Dictat ed: 11:38 Jorge Stein MD Signed : 11:38 [facility] [address] [place] [address], [id number], 03/25/2024 10:34:55 03/24/20 24 03/24/2024 CT cardi ac [facility] [address] [place] [address] [phone] Name: JULIO PHILLIPS 5 Age: 38 : 1985 Exam Date: 2023 ACCESS ION: [id number] ALEKSEY FLORES MD: IVY GOODWIN EXAM: 1. CTA of the heart. 2. Limite d CT of the chest HISTOR Y: Patien t presen ts with chest pain, shortn ess of breath and syncop e onset 1.5 yrs ago. Curren t smoker . Histor y of COPD, Asthma , emphys landon, and high choles terol. Patien t denies family histor y of cardia c diseas e. TECHNI QUE: CTA of the heart and limite d CT of the chest with IV contra st was perfor med accord ing to the borja ry artery protoc ol using Retros pectiv e ECG trigge ring. The heart rate at the time of acquis ition was 79. 100 ml of Omnipa que 350 was inject ed throug h the RACF withou t eviden ce of advers e reacti on. 3D imagin g and MPR's were recons tructe d by the radiol ogist [facility] Automa mary exposu re contro l was used for dose optimi zation on this exam. CTDIvo l in mGy: 85.63 DLP in mGy-cm : 1439 MEDICA TIONS: 0 mg of IV metopr olol were admini stered prior to scanni ng. 0.4 mg of subing uinal nitrog lyceri n was admini stered immedi ately prior to scanni ng. COMPAR KAMAR: None FINDIN GS: VASCUL AR: The borja ry arteri es have a normal origin . There is right borja ry artery domina nce. The child therapist ior descen ding artery (PDA) is patent . Left Main: The left main borja ry artery is a medium size vessel and bifurc ates into the left anteri or descen ding (LAD) and left circum flex (LCX). LAD: Patent with no eviden ce of plaque or stenos is. It gives off patent diagon al branch es. LCX: Patent with no eviden ce of plaque or stenos is. It gives off patent obtuse margin al branch es. RCA: Patent with no eviden ce of plaque or stenos is. The pulmon kenn arteri es are normal in course and calibe r. The enhanc ed vascul ar struct ures are otherw ise unrema rkable . CHEST: Heart/ Perica rdium: The heart is normal in size. No perica rdial effusi on or calcif icatio n. There is no thicke paolo or calcif icatio ns of the aortic and mitral valves . Medias tinum/ Joellen: Scatte red subcen timete r medias tinal lymph nodes are presen t. Lungs/ Pleura : Scatte red centri lobula r ground -glass nodule s are seen throug hout the lungs. The lungs are free of acute focal consol idatio n. No suspic ious pulmon kenn nodule s are seen. No pneumo thorax or pleura l effusi on is presen t. Chest Wall: The chest wall is unrema rkable . Abdome n: The visual ized viscer al struct ures in the abdome n are unrema rkable . MUSCUL OSKELE VAL: The osseou s struct ures are intact . Mild degene rative change s are seen in the thorac ic spine. IMPRES MYRON: 1. No CT eviden ce of borja ry artery diseas e. 2. Respir atory bronch ioliti s. ASSESS MENT: CAD-RA DS 0: No borja ry artery diseas e. Final Report Dictat ed: 11:38 Jorge Stein MD Signed : 11:38 Jorge Stein MD [facility] - [facility] [address] [place] [address], [id number], 03/25/2024 10:34:55 03/26/2003/09/2024 US, echoc ardio gram No observ ation record ed. [email or web address] Not Available 2023 08:37:24 05/04/2008/20/2023 imagi ng/di agnos tic resul t No observ ation record ed. [email or web address] Not Available 21:49:51 05/04/2009/29/2023 imagi ng/di agnos tic resul t No observ ation record ed. [email or web address] Not Available 21:49:53 05/04/2009/29/2023 imagi ng/di agnos tic resul t No observ ation record ed. [email or web address] Not Available 21:49:54 05/04/2009/30/2023 imagi ng/di agnos tic resul t No observ ation record ed. [email or web address] Not Available 21:49:55 05/04/2009/30/2023 imagi ng/di agnos tic resul t No observ ation record ed. [email or web address] Not Available 21:49:56 05/04/2010/06/2023 imagi ng/di agnos tic resul t No observ ation record ed. [email or web address] Not Available 21:49:56 05/04/2010/06/2023 imagi ng/di agnos tic resul t No observ ation record ed. [email or web address] Not Available 21:50:01 05/04/2010/06/2023 imagi ng/di agnos tic resul t No observ ation record ed. [email or web address] Not Available 21:50:01 Result Notes None recorded. Problems Name Problem SNOMED Code Status Onset Date Resolution Date Notes Provider Name and Address Organization Details Recorded Time Cardiovascu lar stress test abnormal 204271337 Active 2023 Rupali Bone [facility] 4 17:39:06 Chest pain 52671015 Active 2023 Rafi Gorman [facility] 4 09:57:40 Dyspnea on exertion 45823533 Active 2023 Melva Goodwin MD [address] , [place], [address], [facility] 4 16:13:52 Problem Notes None recorded. Procedures Surgical History None recorded. Imaging Results Imaging Date Name Status LastModified by Organization Details LastModified Time 02/02/2024 electrocardiogram, routine ECG, 12 leads min completed [facility] Only - [facility] [address] [address], [place], [address], 02/04/2024 16:05:41 02/19/2024 treadmill* completed [email or web address] Information no t available 02/26/2024 11:39:16 02/27/2024 treadmill* completed tcowden Information no t available 03/01/2024 09:30:37 03/10/2024 trans-thoracic echocardiogram (TTE) (PROC) completed tcowden [facility] [place], [address], 03/16/2024 12:46:26 03/24/2024 CT, angiogram, heart, w/wo contrast completed tcowden Sc Only - [facility] Rad [address] [place] [address], [id number], 03/25/2024 10:34:55 03/24/2024 CT cardiac chest completed tcowden Sc Only - [facility] [address] [place] [address], [id number], 03/25/2024 10:34:55 03/09/2024 US, echocardiogram [place] [id number] [facility] 03/26/2024 08:37:24 08/20/2023 imaging/diagnostic result completed Information not available 05/04/2024 21:49:51 09/29/2023 imaging/diagnostic result completed Information not available 05/04/2024 21:49:53 09/29/2023 imaging/diagnostic result completed Information not available 05/04/2024 21:49:54 09/30/2023 imaging/diagnostic result completed Information not available 05/04/2024 21:49:55 09/30/2023 imaging/diagnostic result completed Information not available 05/04/2024 21:49:56 10/06/2023 imaging/diagnostic result completed Information not available 05/04/2024 21:49:56 10/06/2023 imaging/diagnostic result completed Information not available 05/04/2024 21:50:01 10/06/2023 imaging/diagnostic result completed Information not available 05/04/2024 21:50:01 Procedure Notes None recorded. Medical Equipment None Reported. Vitals Date Recorded Body height Provider Name an d Address Organization Details Last Updated DateTime 01/27/2024 165.1 cm [facility] [place] 01/27/2024 15:58:14 Date Recorded Heart rate Provider Name an d Address Organization Details Last Updated DateTime 01/27/2024 68 /min [facility] 01/27/2024 15:58:31 Date Recorded Oxygen saturation Oxygen saturation in Arterial blood by Pulse oximetry Provider Name and Address Organization Details Last Updated DateTime 01/27/2024 96 % 96 % [facility] 01/27/2024 15:58:35 Date Recorded Body mass index (BMI) Body weight Provider Name and Address Organization Details Last Updated DateTime 01/27/2024 32.9 kg/m2 97076.29 g [facility] 01/27/2024 15:58:40 Date Recorded Systolic blood pressure Diastolic blood pressure Provider Name and Address Organization Details Last Updated DateTime 01/27/2024 124 mm[Hg] 90 mm[Hg] [facility] 01/27/2024 15:58:23 Social History None recorded. Functional Status None recorded. Mental Status None recorded. Family History Nothing Reported. Medical History No medical history recorded. Gynecological HistoryNo gynecological history recorded. Obstetrics History GPAL:G 0 P 0 0 0 0 Past Encounters Encounter ID Performer Location Encounter Start Date Encounter Closed Date Diagnosis/Indication Diagnosis SNOMED-CT Code Diagnosis ICD10 Code Diagnosis Note [id number] Anneliese Goodwin MD [facility] Specialty Cardiolog y ([facility] [address] [place] [address] 01/27/2024 15:51:32 01/28/2024 10:49:59 Chest pain 92021360 R07.9 Dyspnea on exertion 6084 5006 R06.09 Health Concerns Section Related Observation LastModified by Organization Detai ls LastModified Time None Recorded Concern Status LastModified by Organization Details LastModified Time None Recorded Advance Directives Directive None Recorded Payers Encounter Date Sequence Insurance Name Policy Number Policy Lockett Covered Member ID Lockett Member ID Guarantor Name 01/27/2024 1 [facility] ON OR AFTER 01/04/21 (MEDICAID REPLACEMENT - HMO) Evi Phillips [id number] Evi Phillips Notes Date Note Type Note Provider Name and Address Organization Details Recorded Time 01/27/2024 text/html Miss Phillips has b een diagnosed with asthma for a long time but over the last 2 years she developed some infection. They have been trying to treat with different medications including steroid. However she did not have any improvement. Since last 6 months she has been having chest pain. Chest pain she is describing as a sharp in nature located in the substernal region which could occur with or without exertion. Other kind of chest pain she describes as a tightness that could also cause any time. Sometimes chest pain gets worse after coughing spell. She feels shortness as well as heaviness. Last for few minutes and resolves with time. She gets out of breath on exertion. She has to stop and take a break before she could proceed further with the symptoms going on for a while and over the bit of last 2 years progressively getting worse and chest pain has been having for the last 6 months. She is smoked 10 to 15 cigarettes/day for 20 years and quit. She does marijuana occasionally. EKG will be done today. Assessment and plan 1) chest pain ? Could be from pleurisy but has been having tightness as well. Will obtain treadmill stress test. 2) shortness of breath ? Mostly due to lung etiology. Will obtain echocardiogram to rule out any cardiovascular causes. RTC IN 6 M -Patient is advised to contact my office or seek immediate medical attention if sudden escalation of clinical symptoms. Thank you for allowing us to participate in the care of this patient. Please do not hesitate to call us or reach out to us if there is any question or concern. Review of system: General: No fever HEENT: Atraumatic Cardiovascular: See HPI Respiratory: No hemoptysis GI: No abdominal pain : No hematuria Skin: No rashes Musculoskeletal: No muscle pain Neurologic: No dizziness Hematology/lymph: No bleeding. Psychiatric: No irritability Endocrine: No heat intolerance Physical examination: GENERAL: no acute distress. EYES: The eyes appear symmetrical. NECK: Supple, without jugular venous distention. RESPIRATORY: No crackles CARDIOVASCULAR: No significant murmur is present. Regular rate and rhythm. ABDOMEN: Soft, nontender, nondistended. EXTREMITIES: No edema. MUSCULOSKELETAL: No severe kyphoscoliosis. SKIN: Without evidence of xanthoma. NEUROLOGIC: Alert and oriented X 3. Melva Goodwin MD [address] [place] [address], [phone], [facility] 01/27/2024 16:14:10 OBGyn Episode No OBEpisode recorded.
--- OUTSIDE RECORDS SUMMARY | 2024-08-03 08:07 | XMS_ITS ---
Author Organization Unknown Address [address] [place] [phone] Phone Care Team Providers Care Mri Supervisor Name Role Phone SILVERIO SULLY Attending Unavailable [...] Smoking History Unknown if ever smoked [id number] Sex Female Medications Medication Start Date End Date Route Frequency Dose Code Code System Medication Instructions Home Meds Albuterol Sulfate 0.5% Inhalation Solution 10/25/2021 Unknown INHALATION NEEDED 4 TIMES A DAY 1 unit(s) 104001 RxNorm 1 EACH INHALATION NEEDED 4 TIMES A DAY Ipratropium [place]-Al[place] terol Sulfate 0.5MG/3ML-3M G/3ML Inhalation Solution 10/25/2021 Unknown INHALATION EVERY 6 HOURS 3 unit(s) 0749138 RxNorm 3 EACH INHALATION EVERY 6 HOURS ProAir HFA 0.09MG/1Actu ation Inhalation Suspension 10/25/2021 Unknown INHALATION NEEDED 4 TIMES A DAY 2 unit(s) 593824 RxNorm 2 EACH INHALATION NEEDED 4 TIMES A DAY Symbicort 160/4.5 160MCG-4.5MC G/1 Actu Inhalation Aerosol Liquid 10/25/2021 Unknown INHALATION TWICE A DAY 2 unit(s) 3065285 RxNorm 2 EACH INHALATION TWICE A DAY Wellbutrin SR 150MG Oral Tablet, Extended Release, 12 HR 10/25/2021 Unknown ORAL TWICE A DAY 150 MILLIGRAMS 263682 RxNorm TAKE 150 MILLIGRAMS ORAL TWICE A DAY Meloxicam 15MG Oral Tablet 12/28/2021 Unknown ORAL ONCE A DAY 15 MILLIGRAMS [id number] RxNorm TAKE 15 MILLIGRAMS ORAL ONCE A DAY Omeprazole 40MG Oral Capsule, Delayed Release 04/01/2022 Unknown ORAL ONCE A DAY 40 MILLIGRAMS 054811 RxNorm TAKE 40 MILLIGRAMS ORAL ONCE A [...] Code System No Known Drug Allergies Active [id number] spotdockOMED-CT Plan of Treatment Josemartinaroberto carlosjc Established Patient 025 Digital Razia Screen Bilateral (55847) Encounters Encounter Diagnosis Start Date Code Code Sys tem Chest pain 02/19/2024 58337056 SNOMED-CT Personal Care Team Section Performer Name Performer Role Active Date Inactive Da te
--- OUTSIDE RECORDS SUMMARY | 2024-08-03 08:07 | XMS_ITS | Clinical Summary ---
Author Organization [facility] Address [address] [place] [address]. [place], [place] [id number] [place] [id number] Care Team Providers Care Wood Type Finisher Name Role Phone Leonel Degroot MD Primary Care Provider [phone] Allergies No known active allergies Social History Tobacco Use Types Packs/Day Years Used Date Smoking Tobacco: Never Assessed Comments Unknown Sex and Gender Information Value Date Recorded Sex Assigned at Not on file Legal Sex Female 9:39 PM CONSTRUCTION DIRECTOR Gender Identity Not on file Sexual Orientation Not on file Last Filed Vital Signs Vital Sign Reading Time Taken Comments Blood Pressure - - Pulse - - Temperature - - Respiratory Rate - - Oxygen Saturation - - Inhaled Oxygen Concentration - - Weight 68 kg (150 lb) 08/11/2020 11:00 AM CONSTRUCTION DIRECTOR Height 162.6 cm (5' 4 ) 08/11/2020 11:00 AM CONSTRUCTION DIRECTOR Body Mass Index 25.75 08/11/2020 11:00 AM CONSTRUCTION DIRECTOR Plan of Treatment Health Maintenance Due Date Last Done Comments Cervical Cancer Screening Pap Smear (Age 30 to 64) Every 3 Years 1983 Annual Physical 1986 Hepatitis C 2001 DTaP, Tdap and Td Vaccines (1 - Tdap) 2002 10/16/1988, 04/11/1987, 08/25/1984, Additional history exists Hepatitis B Vaccines (1 of 3 - 19+ 3-dose series) 2002 Cervical Cancer Screening Pap with HPV Testing (Age 30 to 64) Every 5 Years 2013 Cervical Cancer Screening with HPV 2013 Mammogram Screening 2023 COVID-19 Vaccine (2023-25 season) 2024 Influenza Adult (#1) 2024 HPV Vaccines Aged Out No longer eligi ble based on patient's age to complete this topic Meningococcal B Vaccine Aged Out No l onger eligible based on patient's age to complete this topic Meningococcal Vaccine Aged Out No marichuy crys eligible based on patient's age to complete this topic Pneumococcal Vaccine: Pediatrics (0 to 5 Years) and At-Risk Patients (6 to 64 Years) Aged Out No longer eligible based on patient's age to complete this topic RSV Immunizations Under 20 Months Aged Out No longer eligible based on patient's age to complete this topic Insurance [facility] Care Teams Wood Type Finisher Relationship Specialty Start Date End Date Leonel Degroot MD [address] [place] [phone] PCP - General FAMILY PRACTICE 06/21/20
--- OUTSIDE RECORDS SUMMARY | 2024-08-03 08:07 | XMS_ITS ---
Author Organization Unknown Address [address] [place] [phone] Phone Care Team Providers Care Concrete Conveyor Operator Name Role Phone JEAN CLAUDE SULLY Attending Unavailable TALISHA Hernandes Primary Unavailable [...] free, adsorbed 02/28/1998 Completed 09 CVX Results US ECHO W/ COLOR - Completed : 03/09/2024 15:34 LOINC: See Scanned Image Attachment for Report Dictated By: Trans Initials: BG Trans Date: 03/12/24 14:42 <<REPDIST>> Social History Type Status Start Date End Date Code Code Syst em Smoking History Unknown if ever smoked [id number] Sex Female Medications Medication Start Date End Date Route Frequency Dose Code Code System Medication Instructions Home Meds Albuterol Sulfate 0.5% Inhalation Solution 10/25/2021 Unknown INHALATION NEEDED 4 TIMES A DAY 1 unit(s) 379113 RxNorm 1 EACH INHALATION NEEDED 4 TIMES A DAY Ipratropium [place]-Albu terol Sulfate 0.5MG/3ML-3M G/3ML Inhalation Solution 10/25/2021 Unknown INHALATION EVERY 6 HOURS 3 unit(s) 8510427 RxNorm 3 EACH INHALATION EVERY 6 HOURS ProAir HFA 0.09MG/1Actu ation Inhalation Suspension 10/25/2021 Unknown INHALATION NEEDED 4 TIMES A DAY 2 unit(s) 507730 RxNorm 2 EACH INHALATION NEEDED 4 TIMES A DAY Symbicort 160/4.5 160MCG-4.5MC G/1 Actu Inhalation Aerosol Liquid 10/25/2021 Unknown INHALATION TWICE A DAY 2 unit(s) 7560637 RxNorm 2 EACH INHALATION TWICE A DAY Wellbutrin SR 150MG Oral Tablet, Extended Release, 12 HR 10/25/2021 Unknown ORAL TWICE A DAY 150 MILLIGRAMS 303614 RxNorm TAKE 150 MILLIGRAMS ORAL TWICE A DAY Meloxicam 15MG Oral Tablet 12/28/2021 Unknown ORAL ONCE A DAY 15 MILLIGRAMS 079503 RxNorm TAKE 15 MILLIGRAMS ORAL ONCE A DAY Omeprazole 40MG Oral Capsule, Delayed Release 04/01/2022 Unknown ORAL ONCE A DAY 40 MILLIGRAMS 444101 RxNorm TAKE 40 MILLIGRAMS ORAL ONCE A [...] Code System No Known Drug Allergies Active 896961174 SN[facility]ED[facility] 025 Digital Razia Screen Bilateral (02385) Encounters Encounter Diagnosis Start Date Code Code Sys tem Chest pain 03/09/2024 [id number] SNOMED-CT Personal Care Team Section Performer Name Performer Role Active Date Inactive Da te Imaging Narrative Notes [facility] 03/12/2024 14:42 [facility] [address] [place], [place] [address] RADIOLOGY REPORT Patient Number: [id number] Patient Name: ALAN PAYNE Type: O/P MR Number: [id number] : 1985 Age: 38 Sex: F Room #: Admit Date: 03/09/24 Discharge Date 03/09/24 Ordering Physician: JEAN CLAUDE VIRK Family Physician: TALISHA MANCERA Second Physician: X-Ray Number : [id number] US ECHO W/ COLOR [id number] COMPLETE:03/09/24 15:34 APC [id number] (REASON-ECHO COMPLTE: CHEST PAIN See Scanned Image Attachment for Report Dictated By: Trans Initials: Trans Date: 03/12/24 14:42 <<REPDIST>>
--- OUTSIDE RECORDS SUMMARY | 2024-08-03 08:07 | XMS_ITS ---
Author Organization Unknown Address [address] [place] [phone] Phone Care Team Providers Care Field Project Manager Name Role Phone MARLAPRISCILA LIANA Attending Unavailable TALISHA Hernandes Primary Unavailable Immunization [...] Smoking History Unknown if ever smoked [id number] Sex Female Medications Medication Start Date End Date Route Frequency Dose Code Code System Medication Instructions Home Meds Albuterol Sulfate 0.5% Inhalation Solution 10/25/2021 Unknown INHALATION NEEDED 4 TIMES A DAY 1 unit(s) 746366 RxNorm 1 EACH INHALATION NEEDED 4 TIMES A DAY Ipratropium [place]-Albu terol Sulfate 0.5MG/3ML-3M G/3ML Inhalation Solution 10/25/2021 Unknown INHALATION EVERY 6 HOURS 3 unit(s) 3572260 RxNorm 3 EACH INHALATION EVERY 6 HOURS ProAir HFA 0.09MG/1Actu ation Inhalation Suspension 10/25/2021 Unknown INHALATION NEEDED 4 TIMES A DAY 2 unit(s) 995007 RxNorm 2 EACH INHALATION NEEDED 4 TIMES A DAY Symbicort 160/4.5 160MCG-4.5MC G/1 Actu Inhalation Aerosol Liquid 10/25/2021 Unknown INHALATION TWICE A DAY 2 unit(s) 4081310 RxNorm 2 EACH INHALATION TWICE A DAY Wellbutrin SR 150MG Oral Tablet, Extended Release, 12 HR 10/25/2021 Unknown ORAL TWICE A DAY 150 MILLIGRAMS [id number] RxNorm TAKE 150 MILLIGRAMS ORAL TWICE A DAY Meloxicam 15MG Oral Tablet 12/28/2021 Unknown ORAL ONCE A DAY 15 MILLIGRAMS [id number] RxNorm TAKE 15 MILLIGRAMS ORAL ONCE A DAY Omeprazole 40MG Oral Capsule, Delayed Release 04/01/2022 Unknown ORAL ONCE A DAY 40 MILLIGRAMS 491642 RxNorm TAKE 40 MILLIGRAMS ORAL ONCE A [...] Code System No Known Drug Allergies Active [id number] SNOMED-CT Plan of Treatment [facility] Established Patient 025 Digital Razia Screen Bilateral (59350) Encounters Encounter Diagnosis Start Date Code Code Sys tem Hypersomnia 09/30/2023 [id number] SNOMED-CT Personal Care Team Section Performer Name Performer Role Active Date Inactive Da te Procedures Notes [facility] 10/05/2023 12:17 Patient name: Calista Phillips Date of Service: Referring physician: Leonel Fermin Dr. Indication: to assess for sleep apnea History: 38 year-old female, body weight 192 lbs, height 65 inches, BMI 31.9, was sent to have HSAT to assess for sleep apnea, has daytime sleepiness, shortness of breath, lung disease Methods: The study was recorded on a Chronicity night 1 device using 1 RI P effort belt and the pressure- based flow sensor. The heart rate is dropped from the oximeter sensor and the snores signal is derived from the pressure sensors The device also records body position. The home sleep testing raw and scored data reviewed by entirety. Sleep summary: 467 minutes Cardiac summary: Average heart rate 73 BPM Respiratory summary: Patient was noted to have intermittent snoring, 16 obstructive apneas, 12 hypopneas, CARLOS/ AHI 4.5 /hour, lowest saturation 86%, spent 0.6 minute only of sleep time with saturation under 89% Impression: Abnormal home sleep testing, consistent with very mild breathing related sleep disorder , CARLOS/ AHI 4.5/ hour Recommendations: 1. General recommendations to treat sleep apnea- hypopnea syndrome include weight reduction, assessment upper airways and thyroid function testing, education regarding sleep apnea and hypersomnia risks and benefits of treatment, safety specially in terms of driving and working on machineries, and close follow-up. 2. Patient needs further detailed sleep evaluation if she has more symptoms of sleep apnea would benefit from dedicate polysomnography with close follow up Clinical correlation is required Matthew David MD FCCP Diplomate, [place] Board of Sleep Medicine [facility] [employer]
--- OUTSIDE RECORDS SUMMARY | 2024-08-03 08:07 | XMS_ITS ---
Author Organization Unknown Address [address] [place] [phone] Phone Care Team Providers Care Federal District Law Clerk Name Role Phone JULIA GAINES Attending Unavailable TALISHA Hernandes Primary Unavailable Immunization Immunization Date Status Additional Notes Code Code System DTP 1983 Completed 01 CVX DTP 02/11/1984 Completed CVX DTP 08/25/1984 Completed 01 CVX DTP 04/11/1987 Completed CVX DTP 10/16/1988 Completed CVX OPV 1983 Completed 02 CVX OPV 02/11/1984 Completed 02 CVX OPV 08/25/1984 Completed 02 CVX OPV [...] free, adsorbed 02/28/1998 Completed [address] CHEST/LUNG WO CONTRAST - Completed: 09/29/2023 15:19 LOINC: EXAM DESCRIPTION: CT CHEST/LUNG WO CONTRAST REASON FOR STUDY: Patient states for around 1 year she's been getting sharp pains in her chest and it feels like her chest is going to pop when she coughs. States she had a recent lung infection but can't recall what. History of asthma and COPD. Duration: 1 year, comes and goes Smoking History: current TECHNIQUE: CT scan of the chest performed without intravenous contrast using helical scanning technique. Reconstructed coronal and sagittal MPR images reviewed. All images stored on PACS. Automated exposure control was used as a dose optimization technique for this examination. COMPARISON: None available. REFERENCE: Per ACR white paper recommendations, unless otherwise specified no follow-up imaging is recommended for incidental renal and adrenal lesions per consensus recommendations based on imaging criteria. Further lab evaluation could be pursued based on clinical findings. FINDINGS: The sensitivity for detection of solid visceral lesions is diminished without the use of intravenous contrast. LUNGS: There is extensive diffuse bilateral centrilobular ground-glass nodules. There is no discrete focal consolidation or tree-in-bud nodularity. PLEURA: No effusion. No pneumothorax. MEDIASTINUM/KANCHAN: Few scattered mediastinal lymph nodes, index right pretracheal 0.9 cm lymph node. Evaluation for hilar adenopathy is limited without intravenous contrast. HEART: The heart is nonenlarged. CORONARY ARTERY CALCIFICATION: No significant coronary artery calcification. VASCULATURE: Calcified plaque at the origin of the left subclavian artery. AXILLA: No lymphadenopathy. CHEST WALL: There is no subcutaneous emphysema. HARDWARE/LINES/TUBES: None. UPPER ABDOMEN: There is a small hiatal hernia. Thickening of the distal esophagus can be seen with esophagitis in the proper clinical scenario. Multiple rounded nodules adjacent to the spleen could reflect splenule but some of these have attenuation lower than the adjacent spleen and subsequently remains indeterminate. Left renal 1.2 cm fluid density focus compatible with a cyst. There is a peripheral small calcification. Attention on follow-up MRI. MUSCULOSKELETAL: Thoracic vertebral body heights are maintained. Few scattered Schmorl's nodes. Multilevel mild thoracic spine disc degeneration. IMPRESSION: 1. Extensive diffuse bilateral centrilobular nodules. Imaging features are nonspecific and could reflect hypersensitivity pneumonitis. With history of smoking respiratory bronchiolitis and respiratory bronchiolitis interstitial lung disease can also have similar imaging appearance. Other less likely possibilities such as autoimmune causes would also be included in differential in the proper clinical scenario. Recommend pulmonology consultation and attention on follow-up chest CT in 3 months time. 2. Multiple nodules in the left upper abdomen adjacent to the spleen could reflect splenule however, a few of these nodules have attenuation lower than the spleen and subsequently remain indeterminate. If this is a new finding for the patient then recommend contrast-enhanced MRI. 3. Other findings as above. THIS IS AN ELECTRONICALLY VERIFIED FINAL REPORT 09/30/2023 11:43 AM - Electronically signed by Derek Goodwin D.O. AP: SIXTO Report ID: [id number] Reading Location: [place] [address] Social History Type Status Start Date End Date Code Code Syst em Smoking History Unknown if ever smoked [id number] Sex Female Medications Medication Start Date End Date Route Frequency Dose Code Code System Medication Instructions Home Meds Albuterol Sulfate 0.5% Inhalation Solution 10/25/2021 Unknown INHALATION NEEDED 4 TIMES A DAY 1 unit(s) 737212 RxNorm 1 EACH INHALATION NEEDED 4 TIMES A DAY Ipratropium [place]-Albu terol Sulfate 0.5MG/3ML-3M G/3ML Inhalation Solution 10/25/2021 Unknown INHALATION EVERY 6 HOURS 3 unit(s) 7714151 RxNorm 3 EACH INHALATION EVERY 6 HOURS ProAir HFA 0.09MG/1Actu ation Inhalation Suspension 10/25/2021 Unknown INHALATION NEEDED 4 TIMES A DAY 2 unit(s) 997818 RxNorm 2 EACH INHALATION NEEDED 4 TIMES A DAY Symbicort 160/4.5 160MCG-4.5MC G/1 Actu Inhalation Aerosol Liquid 10/25/2021 Unknown INHALATION TWICE A DAY 2 unit(s) 3712605 RxNorm 2 EACH INHALATION TWICE A DAY Wellbutrin SR 150MG Oral Tablet, Extended Release, 12 HR 10/25/2021 Unknown ORAL TWICE A DAY 150 MILLIGRAMS 123748 RxNorm TAKE 150 MILLIGRAMS ORAL TWICE A DAY Meloxicam 15MG Oral Tablet 12/28/2021 Unknown ORAL ONCE A DAY 15 MILLIGRAMS 577934 RxNorm TAKE 15 MILLIGRAMS ORAL ONCE A DAY Omeprazole 40MG Oral Capsule, Delayed Release 04/01/2022 Unknown ORAL ONCE A DAY 40 MILLIGRAMS 589798 RxNorm TAKE 40 MILLIGRAMS ORAL ONCE A [...] Code System No Known Drug Allergies Active 926704406 SNOMED-CT Plan of Treatment [facility] Established Patient 025 Digital Razia Screen Bilateral (66615) Encounters Encounter Diagnosis Start Date Code Code Sys tem Unspecified asthma, uncomplicated 09/29/2023 SNOMED-CT Personal Care Team Section Performer Name Performer Role Active Date Inactive Da te Imaging Narrative Notes
--- OUTSIDE RECORDS SUMMARY | 2024-08-03 08:08 | XMS_ITS | Clinical Summary ---
Author Organization [facility] Address [address] [place] [address] Care Team Providers Care Senior Materials Analyst Name Role Phone Leonel Degroot MD Primary Care Provider Allergies No known active allergies Medications budesonide-formot Love (SYMBICORT) 80-4.5 mcg/actuation HFA Aerosol Inhaler Take 2 Puffs by inhalation 2 times daily. Active tiotropium bromide (SPIRIVA RESPIMAT INHALATION) Take by inhalation. Active albuterol sulfate HFA 90 mcg/actuation aerosol inhaler Take 2 Puffs by inhalation every 6 hours as needed for Shortness of Breath. Active ipratropium bromide (ATROVENT) 0.02 % Solution Take 0.5 mg by inhalation one time only. Active albuterol (PROVENTIL,VENTOL IN) 2.5 mg /3 mL (0.083 %) Solution for Nebulization Take 2.5 mg by inhalation one time only. Active bupropion HCl (WELLBUTRIN ORAL) Take by mouth. Active PREDNISONE ORAL Take by mouth. Active Active Problems No known active problems Encounters Date Type Department Care Team Description 07/28/2024 External Device Data [facility] ABSTRACTION Provider, Abstract 07/27/2024 External Device Data [facility] ABSTRACTION Provider, Abstract 07/13/2024 External Device Data [facility] ABSTRACTION Provider, Abstract 05/10/2024 External Device Data [facility] ABSTRACTION Provider, Abstract from Last 3 Months Family History Relation Name Status Comments Brother Alive Father Alive Mother Alive Sister 1 Alive Sister 2 Alive Son Alive Social History Tobacco Use Types Packs/Day Years Used Date Smoking Tobacco: Some Days Cigarettes 0.3 25.1 Started: 1999 Smokeless Tobacco: Never Tobacco Cessation:Ready to Q uit: Not Asked; Counseling Given: Not Answered Alcohol Use Standard Drinks/Week Comments Yes 0 (1 standard drink = 0.6 oz pur e alcohol) occasional Comments Unknown Sex and Gender Information Value Date Recorded Sex Assigned at Not on file Legal Sex Female 2:20 PM CDT Gender Identity Not on file Sexual Orientation Not on file Last Filed Vital Signs Vital Sign Reading Time Taken Comments Blood Pressure 115/81 12/08/2023 10:52 AM CDT Pulse 81 12/08/2023 10:52 AM CDT Temperature 36.3 ??C (97.3 ??F) 12/08/2023 10:52 AM C DT Respiratory Rate 16 12/08/2023 10:52 AM CDT Oxygen Saturation 95% 12/08/2023 10:52 AM CDT Inhaled Oxygen Concentration - - Weight 89.8 kg (198 lb) 12/08/2023 10:52 AM CDT Height 162.6 cm (5' 4 ) 12/08/2023 10:52 AM CDT Body Mass Index 33.99 12/08/2023 10:52 AM CDT Plan of Treatment Upcoming Encounters Date Type Department Care Team (Late st Contact Info) Description 08/10/2024 2:00 PM RADIOSONDE OPERATOR Office Visit [facility] Oncology and Hematology - [place] [address] [place] [address] [facility] [address] [place] [address] Lv Landis MD [address] [place] [address] Health Maintenance Due Date Last Done Comments Pre-Diabetes and Diabetes Screening 1983 PNEUMOCOCCAL VACCINE 0-64 YEARS (1 of 2 - PCV) 1989 DTAP/TDAP/TD VACCINES (6 - Tdap) 1994 10/16/1988, 04/11/1987, 08/25/1984, Additional history exists CERVICAL CANCER SCREENING 2013 BREAST CANCER SCREENING 2023 INFLUENZA VACCINE (#1) 2024 HEPATITIS B VACCINES Completed 03/03/2001, 03/28/1998, 02/28/1998 HPV VACCINES Aged Out No longer eligi ble based on patient's age to complete this topic Insurance [facility] MEDICAID Care Teams Senior Materials Analyst Relationship Specialty Start Date End Date Leonel Degroot MD [address] [place] [phone] PCP - General Family Practice 12/08/23
--- OUTSIDE RECORDS SUMMARY | 2024-08-03 08:08 | XMS_ITS ---
Author Organization Unknown Address [address] [place] [phone] Phone Care Team Providers Care Shuttlecock Assembler Name Role Phone MARLAPRISCILA LIANA Attending Unavailable [...] Smoking History Unknown if ever smoked [id number] Sex Female Medications Medication Start Date End Date Route Frequency Dose Code Code System Medication Instructions Home Meds Albuterol Sulfate 0.5% Inhalation Solution 10/25/2021 Unknown INHALATION NEEDED 4 TIMES A DAY 1 unit(s) 041599 RxNorm 1 EACH INHALATION NEEDED 4 TIMES A DAY Ipratropium [place]bu terol Sulfate 0.5MG/3ML-3M G/3ML Inhalation Solution 10/25/2021 Unknown INHALATION EVERY 6 HOURS 3 unit(s) 7002688 RxNorm 3 EACH INHALATION EVERY 6 HOURS ProAir HFA 0.09MG/1Actu ation Inhalation Suspension 10/25/2021 Unknown INHALATION NEEDED 4 TIMES A DAY 2 unit(s) 404776 RxNorm 2 EACH INHALATION NEEDED 4 TIMES A DAY Symbicort 160/4.5 160MCG-4.5MC G/1 Actu Inhalation Aerosol Liquid 10/25/2021 Unknown INHALATION TWICE A DAY 2 unit(s) 9810223 RxNorm 2 EACH INHALATION TWICE A DAY Wellbutrin SR 150MG Oral Tablet, Extended Release, 12 HR 10/25/2021 Unknown ORAL TWICE A DAY 150 MILLIGRAMS 349124 RxNorm TAKE 150 MILLIGRAMS ORAL TWICE A DAY Meloxicam 15MG Oral Tablet 12/28/2021 Unknown ORAL ONCE A DAY 15 MILLIGRAMS 910032 RxNorm TAKE 15 MILLIGRAMS ORAL ONCE A DAY Omeprazole 40MG Oral Capsule, Delayed Release 04/01/2022 Unknown ORAL ONCE A DAY 40 MILLIGRAMS 090066 RxNorm TAKE 40 MILLIGRAMS ORAL ONCE A [...] Code System No Known Drug Allergies Active [id number] [employer] [facility]-CT Plan of Treatment [facility] Established Patient 025 Digital Razia Screen Bilateral (98157) Encounters Encounter Diagnosis Start Date Code Code Sys tem Uncomplicated asthma 10/06/2023 [id number] [facility] [employer] [facility]- CT Personal Care Team Section Performer Name Performer Role Active Date Inactive Da te
--- OUTSIDE RECORDS SUMMARY | 2024-08-03 08:08 | XMS_ITS ---
Author Organization Unknown Address [address] [place] [phone] Phone Care Team Providers Care Cash Posting Representative Name Role Phone JOSÉ MIGUEL AGUILAR Attending Unavailable TALISHA Hernandes Primary Unavailable Immunization [...] free, adsorbed 02/28/1998 Completed 09 CVX Results CBC W/ DIFF - Collect Date/T yoel: 06/03/2023 10:55 [facility] ID: [id number] [address] [place] [address], [phone] LOINC: 96187-6 Test Value Unit Reference Range Code Code System Flag WBC 10.5 10^3uL L=4.8 H=10.8 RBC 4.45 10^6uL L=4.20 H=5.40 HEMOGLOBIN 14.1 g/dL L=12.0 H=16.0 718-7 LOINC HEMATOCRIT 40.9 VOL% L=37.0 H=47.0 4544-3 LOINC MCV 91.9 fL L=81.0 H=99.0 MCH 31.7 pg L=27.0 H=32.0 MCHC 34.5 g/dL L=32.0 H=36.0 PLATELETS 353 10^3uL L=100 H=400 04120-7 LOINC RDW 12.2 % L=11.7 H=15.5 %GRAN 63.7 % L=40.0 H=70.0 15187-2 LOINC %LYMPH 27.5 % L=20.0 H=45.0 736-9 LOINC %MONO 6.0 % L=2.0 H=10.0 59464-1 LOINC %EOS 2.1 % L=0.0 H=6.0 713-8 LOINC %BASO 0.4 % L=0.0 H=3.0 706-2 LOINC #NEUT 6.7 10^3uL L=1.9 H=7.6 41860-8 LOINC #LYMPH 2.9 10^3uL L=0.9 H=4.9 67742-5 LOINC #MONO 0.6 10^3uL L=0.1 H=0.9 92719-5 LOINC #EOS 0.2 10^3uL L=0.0 H=0.6 712-0 LOINC #BASO 0.04 10^3uL L=0.00 H=0.10 68287-8 LOINC #IM GRANS 0.0 10^3uL L=0.0 H=7.0 64864-7 LOINC %IM GRANS 0.3 % L=0.0 H=5.0 41407-9 LOINC %NRB 0.0 L=0.0 H=0.2 80392-6 LOINC #NRB 0.000 L=0.000 H=0.012 76075-9 LOINC MANUAL DIFF NOT INDICATED RBC MORPH NOT INDICATED COMPREHENSIVE METABOLIC PANE L - Collect Date/Time: 06/03/2023 10:55 [facility] ID: [id number] [address] [place], [place], [phone] LOINC: 00698-8 Test Value Unit Reference Range Code Code System Flag FASTING UNKNOWN BUN 16 mg/dL L=7 H=20 3094-0 LOINC CREATININE 0.50 mg/dL L=0.52 H=1.04 2160-0 LOINC L GLUCOSE 97 mg/dL L=74 H=106 2345-7 LOINC SODIUM 135 mmol/L L=132 H=144 2951-2 LOINC POTASSIUM 4.0 mmol/L L=3.5 H=5.1 2823-3 LOINC CHLORIDE 106 mmol/L L=98 H=107 2075-0 LOINC CO2 22.0 mmol/L L=22.0 H=30.0 2028-9 LOINC ANION GAP 11 L=10 H=20 58278-9 LOINC OSMOLALITY 281 mOs/kG L=280 H=296 44656-6 LOINC BUN/CREAT 32.0 3097-3 LOINC CALCIUM 8.8 mg/dL L=8.3 H=10.5 65051-7 LOINC AST 25 U/L L=15 H=46 1920-8 LOINC ALT 32 U/L L=9 H=72 1742-6 LOINC ALKALINE PHOS 49 U/L L=38 H=126 6768-6 LOINC TOTAL BILI 0.5 mg/dL L=0.2 H=1.3 1975-2 LOINC ALBUMIN 4.5 G/dL L=3.5 H=5.0 1751-7 LOINC TOTAL PROTEIN 7.7 g/L L=6.3 H=8.2 2885-2 LOINC A/G RATIO 1.4 12051-0 LOINC AGE 37 54769-8 LOINC eGFR NON-AFR 146 ml/min eGFR AFR AMER 177 ml/min US VENOUS LEFT UE - Complete d: 06/03/2023 11:22 LOINC: 98288-0 EXAM DESCRIPTION: US VENOUS LEFT UE HISTORY: Left upper arm pain for 2 days, no known injury TECHNIQUE: Duplex scan was performed using B-mode, spectral Doppler and color- flow Doppler imaging of the left upper extremity was performed utilizing real-time ultrasonography. COMPARISON: None FINDINGS: The deep venous system from the jugular vein through the antecubital fossa demonstrates normal color Doppler flow and wave forms, normal compressibility where applicable, and normal augmentation. No abnormal fluid collections or masses are identified within the soft tissues. IMPRESSION: No sonographic evidence of DVT in the upper extremity. THIS IS AN ELECTRONICALLY VERIFIED FINAL REPORT 06/03/2023 11:20 AM - Electronically signed by Keaton Norris M.D. JR: Report ID: [id number] Reading Location: [id number] Social History Type Status Start Date End Date Code Code Syst em Smoking History Unknown if ever smoked [address] Sex Female Medications Medication Start Date End Date Route Frequency Dose Code Code System Medication Instructions Home Meds Albuterol Sulfate 0.5% Inhalation Solution 10/25/2021 Unknown INHALATION NEEDED 4 TIMES A DAY 1 unit(s) 081340 RxNorm 1 EACH INHALATION NEEDED 4 TIMES A DAY Ipratropium [place]-Albu terol Sulfate 0.5MG/3ML-3M G/3ML Inhalation Solution 10/25/2021 Unknown INHALATION EVERY 6 HOURS 3 unit(s) 5211752 RxNorm 3 EACH INHALATION EVERY 6 HOURS ProAir HFA 0.09MG/1Actu ation Inhalation Suspension 10/25/2021 Unknown INHALATION NEEDED 4 TIMES A DAY 2 unit(s) 195363 RxNorm 2 EACH INHALATION NEEDED 4 TIMES A DAY Symbicort 160/4.5 160MCG-4.5MC G/1 Actu Inhalation Aerosol Liquid 10/25/2021 Unknown INHALATION TWICE A DAY 2 unit(s) 5042270 RxNorm 2 EACH INHALATION TWICE A DAY Wellbutrin SR 150MG Oral Tablet, Extended Release, 12 HR 10/25/2021 Unknown ORAL TWICE A DAY 150 MILLIGRAMS 789950 RxNorm TAKE 150 MILLIGRAMS ORAL TWICE A DAY Meloxicam 15MG Oral Tablet 12/28/2021 Unknown ORAL ONCE A DAY 15 MILLIGRAMS 329844 RxNorm TAKE 15 MILLIGRAMS ORAL ONCE A DAY Omeprazole 40MG Oral Capsule, Delayed Release 04/01/2022 Unknown ORAL ONCE A DAY 40 MILLIGRAMS 848092 RxNorm TAKE 40 MILLIGRAMS ORAL ONCE A [...] Code System No Known Drug Allergies Active 904356285 SNOMED-CT Plan of Treatment Pinky Established Patient 025 Digital Razia Screen Bilateral (76043) Encounters Encounter Diagnosis Start Date Code Code Sys tem Pain in left upper arm 06/03/2023 SNOME D-CT Personal Care Team Section Performer Name Performer Role Active Date Inactive Da te Imaging Narrative Notes
== END 2024-08-03 07:56 | disposition home or self-care (01) ==
PROVIDERS: PCP Family Medicine; Visit Provider Internal Medicine Hematology & Oncology
DX: R19.02 Left upper quadrant abdominal swelling, mass and lump (principal); D18.1 Lymphangioma, any site
CPT/HCPCS: 74177; Q9967

== ENCOUNTER 2024-08-27 10:28 | Outpatient (CLI) | payer OTHER, SELFPAY ==
[2024-08-27 10:40] LABS: Basophils Absolute Auto 0.1 K/mm3 (0.0-0.1); Basophils Percent Auto 0.8 % (0.2-1.2); Eosinophils Absolute Auto 0.3 K/mm3 (0-0.3); Eosinophils Percent Auto 3.3 % (0-4.4); Hematocrit 39.5 % (37.0-47.0); Hemoglobin 13.3 g/dL (12.0-15.0); Immature Granulocyte Absolute 0.02 K/mm3 (0.00-0.031); Immature Granulocyte Percent A 0.2 % (0-0.5); Lymphocytes Absolute Auto 2.51 K/mm3 (0.9-3.2); Lymphocytes Percent Auto 24.5 % (18.3-44.2); Mean Corpuscular HGB Conc 33.7 g/dl (32-36); Mean Corpuscular Hemoglobin 31.5 pg (26-34); Mean Corpuscular Volume 93.6 fl (80-100); Mean Platelet Volume 8.9 fl (7.4-10.4); Monocytes Absolute Auto 0.5 K/mm3 (0.1-0.6); Monocytes Percent Auto 5.3 % (2.6-8.5); Neutrophils Absolute Auto 6.7 K/mm3 (1.3-6.7); Neutrophils Percent Auto 65.9 % (45.5-73.1); Platelet Count Result 415 k/mm3 (150-375); Red Blood Count 4.22 M/mm3 (4.2-5.4); Red Cell Distribution Width 12.4 % (11.5-14.5); White Blood Count 10.2 K/mm3 (4.5-10.0)
[2024-08-27 10:45] LABS: Blood Urea Nitrogen 7 mg/dL (8-26); Carbon Dioxide 26 mmol/L (22-30); Chloride 104 mmol/L (98-109); Estimated Glomerular Filt Rate > 60; Glucose 86 mg/dL (70-105); Potassium 4.1 mmol/L (3.5-4.9); Sodium 139 mmol/L (138-146)
--- OUTSIDE RECORDS SUMMARY | 2024-08-27 11:02 | XMS_ITS | Data Portability ---
Author Organization [facility], [facility] ([place]) Address [address] [place] [address] Care Team Providers Care Pbx Operator Name Role Phone SUN BURK Primary Care Provider Assessment No assessment recorded. Plan of Treatment Reminders Order Date Submit Date Provider Last Modified By Organization Details Last Modified Time Details Appointments None record ed. Lab None record ed. Referral None record ed. Procedures None record ed. Surgeries None record ed. Imaging None record ed. Medication Orders None record ed. Patient TargetsNo targets recorded. Patient InstructionsNo instructions recorded. Reason for Referral None Reported. Results Created Date Observation Date Name Description Value Unit Range Abnormal Flag Note LastModifiedBy Organization Detail LastModifiedTime 02/02/20 24 02/02/2024 elect jeannie cardnoagr am, routi ne ECG, 12 leads min No observ ation record ed. NAHUM De Only - [facility] [address] [address], [place], [address], 02/04/2024 16:05:41 02/26/20 24 02/19/2024 laura michelle* [...] acic echoc ardio gram (TTE) (PROC ) [facility] [place] [address] [facility] [address] Adult Echoca rdiogr am Report Name: Julio PHILLIPS Study Date: 2023 : 1985 2357 Gender : Female Age: 38 yrs Height [...] PM cc: Julio Phillips 2023 [facility] [address] [place], [address], 03/16/2024 12:46:26 03/24/20 24 03/24/2024 CT, angio gram, heart , w/wo contr ast [facility] [address] [place] [address] Name: SHERRI PHILLIPSANAHY BLOOD 5 Age: 38 : 1985 Exam Date: 2023 ACCESS ION: [id number] ALEKSEY FLORES MD: IVY GOODWIN EXAM: 1. [...] d by the radiol [facility]ist [facility]. Automa mary exposu re contro l was [...] right borja ry artery domina nce. The supervising airplane pilot ior descen ding artery (PDA) is patent [...] MD Signed : 11:38 Jorge Stein MD De Only - [facility] Rad [address] [place] [address], [address], 03/25/2024 10:34:55 03/24/20 24 03/24/2024 CT cardi ac chest [facility] [address] [place] [address] Name: JULIO PHILLIPS 5 Age: 38 : 1985 Exam Date: 2023 ACCESS ION: [id number] ALEKSEY FLORES MD: IVY GOODWIN EXAM: 1. [...] d by the radiol ogist at an [facility] workst ation. Automa mary exposu re contro l was [...] right borja ry artery domina nce. The supervising airplane pilot ior descen ding artery (PDA) is patent [...] MD Signed : 11:38 Jorge Stein MD Formerly [facility] [address] [place] [address], [address], 03/25/2024 10:34:55 03/26/2003/09/2024 , echo ardio gram No observ ation record ed. [email or web address] Not Available 2023 08:37:24 05/04/20 24 08/20/2023 imagi ng/di agnos tic resul t No [...] Recorded Time Cardiovascu lar stress test abnormal 347305201 Active 2023 Rupali Chappellden [facility] 4 17:39:06 Chest pain 94053123 Active 2023 Rafi Gorman [facility] 4 09:57:40 Dyspnea on exertion 53821269 Active 2023 Melva Goodwin MD [address] [place] [address], [phone], [facility] 4 16:13:52 Problem Notes None recorded. Procedures Surgical History None recorded. Imaging Results Imaging Date Name Status LastModified by Organization Details LastModified Time 02/02/2024 electrocardiogram, routine ECG, 12 leads min completed [facility] De Only - De Cardiology Ekg [address] [facility] [address] [address], [place], [address], 02/04/2024 16:05:41 02/19/2024 treadmill* completed Information no t available 02/26/2024 11:39:16 02/27/2024 treadmill* completed t[facility] Information no t available 03/01/2024 09:30:37 03/10/2024 trans-thoracic echocardiogram (TTE) (PROC) completed [facility] [place], [address], 03/16/2024 12:46:26 03/24/2024 CT, angiogram, heart, w/wo contrast completed t[facility]owden Sc Only - [facility] Rad [address] [place] [address], [address], 03/25/2024 10:34:55 03/24/2024 CT cardiac chest completed tcowden Sc Only - [facility] [address] [place] [address], [address], 03/25/2024 10:34:55 03/09/2024 US, echocardiogram completed Inform ation not available 03/26/2024 08:37:24 08/20/2023 imaging/diagnostic result [...] None Reported. Vitals Date Recorded Body height Heart rate Oxygen saturation Oxygen saturation in Arterial blood by Pulse oximetry Body mass index (BMI) Body weight Systolic blood pressure Diastolic blood pressure Provider Name and Address Organization Details Last Updated DateTime 165.1 cm 68 /min 96 % 96 % 32.9 kg/m2 55951.2 9 g 124 mm[Hg] 90 mm[Hg] Rafi [facility] 4 15:58:23 Social History None recorded. Functional Status None recorded. Mental Status None recorded. Family History Nothing Reported. Medical History No medical history recorded. Gynecological HistoryNo gynecological history recorded. Obstetrics History GPAL:G 0 P 0 0 0 0 Past Encounters Encounter ID Performer Location Encounter Start Date Encounter Closed Date Diagnosis/Indication Diagnosis SNOMED-CT Code Diagnosis ICD10 Code Diagnosis Note [id number] Anneliese Goodwin MD [facility] Specialty Cardiolog y ([place]) [address] [place] [address] 01/27/2024 15:51:32 01/28/2024 10:49:59 Chest pain 32303457 R07.9 Dyspnea on exertion 6084 5006 R06.09 Health Concerns Section Related Observation LastModified by Organization Detai ls LastModified Time None Recorded Concern Status LastModified by Organization Details LastModified Time None Recorded Advance Directives Directive None Recorded Payers Encounter Date Sequence Insurance Name Policy Number Policy Lockett Covered Member ID Lockett Member ID Guarantor Name 01/27/2024 1 [facility] ON OR AFTER 01/04/21 (MEDICAID REPLACEMENT - HMO) Evi Phillips [id number] Evi Phillips Notes Date Note Type Note [...] today. Assessment and plan 1) chest pain Could be from pleurisy but has been having tightness as well. Will obtain treadmill stress test. 2) shortness of breath Mostly due to lung etiology. Will obtain [...] X 3. Melva Goodwin MD [address] , [place], [address], [facility] 01/27/2024 16:14:10 OBGyn Episode No OBEpisode recorded.
--- OUTSIDE RECORDS SUMMARY | 2024-08-27 11:02 | XMS_ITS | Clinical Summary ---
Author Organization [facility] Address [address] [place] [address] Care Team Providers Care Appellate Court Clerk Name Role Phone Leonel Degroot MD Primary Care Provider [phone] Source Comments [facility]non-owned Affiliates and Associated Physician Practices is amultiple site organization consisting of ambulatory clinics and hospital sitesin [place], [place], [place] and [place]. This disclosure is being madepursuant to the Care Everywhere program and may not contain all information available regarding this patient. Last updated 18.[facility] Allergies No known active allergies Medications * [...] age to complete this topic Care Teams Appellate Court Clerk Relationship Specialty Start Date End Date Leonel Degroot MD [address] [place] [address] PCP - General 02/05/18
--- OUTSIDE RECORDS SUMMARY | 2024-08-27 11:02 | XMS_ITS | Referral Summary ---
Author Organization [facility] Address [address] [place] [address] Care Team Providers Care Medical Transport Specialist Name Role Phone Leonel Degroot MD Primary Care Provider Source Comments [facility],non-owned Affiliates and Associated Physician Practices is amultiple site organization consisting of ambulatory clinics and hospital sitesin [place], [place], [place] and [place]. This disclosure is being madepursuant to the Care Everywhere program and may not contain all information available regarding this patient. Last updated 18.[facility] Allergies No known active allergies Medications * [...] of Treatment Not on file Care Teams Medical Transport Specialist Relationship Specialty Start Date End Date Leonel Degroot MD [address] [place] [phone] PCP - General 02/05/18
--- OUTSIDE RECORDS SUMMARY | 2024-08-27 11:03 | XMS_ITS ---
Author Organization Unknown Address [address] [place] [phone] Phone Care Team Providers Care Engraving Supervisor Name Role Phone HOLLI SAEED Attending Unavailable [...] Smoking History Unknown if ever smoked [address] Sex Female Medications Medication Start Date End Date Route Frequency Dose Code Code System Medication Instructions Home Meds Albuterol Sulfate 0.5% Inhalation Solution 10/25/2021 Unknown INHALATION NEEDED 4 TIMES A DAY 1 unit(s) 609885 RxNorm 1 EACH INHALATION NEEDED 4 TIMES A DAY Ipratropium [place]-Albu terol Sulfate 0.5MG/3ML-3M G/3ML Inhalation Solution 10/25/2021 Unknown INHALATION EVERY 6 HOURS 3 unit(s) 2841035 RxNorm 3 EACH INHALATION EVERY 6 HOURS ProAir HFA 0.09MG/1Actu ation Inhalation Suspension 10/25/2021 Unknown INHALATION NEEDED 4 TIMES A DAY 2 unit(s) 912502 RxNorm 2 EACH INHALATION NEEDED 4 TIMES A DAY Symbicort 160/4.5 160MCG-4.5MC G/1 Actu Inhalation Aerosol Liquid 10/25/2021 Unknown INHALATION TWICE A DAY 2 unit(s) 5568194 RxNorm 2 EACH INHALATION TWICE A DAY Wellbutrin SR 150MG Oral Tablet, Extended Release, 12 HR 10/25/2021 Unknown ORAL TWICE A DAY 150 MILLIGRAMS 919249 RxNorm TAKE 150 MILLIGRAMS ORAL TWICE A DAY Meloxicam 15MG Oral Tablet 12/28/2021 Unknown ORAL ONCE A DAY 15 MILLIGRAMS 871805 RxNorm TAKE 15 MILLIGRAMS ORAL ONCE A DAY Omeprazole 40MG Oral Capsule, Delayed Release 04/01/2022 Unknown ORAL ONCE A DAY 40 MILLIGRAMS 449922 RxNorm TAKE 40 MILLIGRAMS ORAL ONCE A DAY Assessment You had the following problems:UNSPECIFIED ASTHMA, UNCOMPLICATED Hospital Discharge Instructions Should you have any questions prior to discharge, please contact a member of your healthcare team. If you have left the hospital and have any questions, please contact your primary care physician. Reason For Referral No Data Found Problems Problem Start Date Resolved Date Status Code Code System UNSPECIFIED ASTHMA, UNCOMPLICATED active 089837164 [employer] InfrastructureOMED-CT Allergies and Adverse Reactions Allergy Substance Reaction Severity Start Date Concern Status Co de Code System No Known Drug Allergies Active 163331682 SNOMED-CT Plan of Treatment Holli Established Patient 025 CT Chest/Lung WO Contrast (55206) 09/10 Encounters Encounter Diagnosis Start Date Code Code Sys tem Canceled operative procedure 11/19/2023 06993341 SNOMED-CT Personal Care Team Section Performer Name Performer Role Active Date Inactive Da kavon
--- OUTSIDE RECORDS SUMMARY | 2024-08-27 11:03 | XMS_ITS | Patient Health Summary ---
Author Organization [facility] Address [address] [place] [address] Care Team Providers Care Director Regulatory Compliance Name Role Phone Leonel Degroot MD Primary Care Provider [phone] Note from [facility],non-owned Affiliates and Associated Physician Practices is amultiple site organization consisting of ambulatory clinics and hospital sitesin [place], [place], [place] and [place]. This disclosure is being madepursuant to the Care Everywhere program and may not contain all information available regarding this patient. Last updated 18.[facility] [employer] Allergies No known active allergies Medications * [...] Sexual Orientation Not on file Care Teams Director Regulatory Compliance Relationship Specialty Start Date End Date Leonel Degroot MD [address] [place] [phone] [facility] - General 02/05/18
--- OUTSIDE RECORDS SUMMARY | 2024-08-27 11:03 | XMS_ITS ---
Author Organization Unknown Address [address] [place] [phone] Phone Care Team Providers Care Optometric Aide Name Role Phone JOSE R TALAMANTES Attending Unavailable TALISHA Hernandes Primary Unavailable Immunization Immunization Date Status Additional Notes Code Code System DTP 1985 Completed CVX DTP 02/11/1984 Completed CVX DTP 08/25/1984 Completed CVX DTP 04/11/1987 Completed CVX DTP 10/16/1988 Completed CVX OPV 1985 Completed CVX OPV 02/11/1984 Completed 02 CVX OPV [...] BUN/CREAT - Collect Date/David e: 10/30/2023 10:55 [facility] ID: [id number] [place] [address], [phone] LOINC: 3097-3 Test Value Unit Reference Range Code Code System Flag BUN 14 mg/dL L=7 H=20 3094-0 LOINC CREATININE 0.50 mg/dL L=0.52 H=1.04 2160-0 LOINC L AGE 38 [address]52[address]-7 LOINC eGFR NON-AFR 145 ml/min eGFR AFR [...] 10/30/2023 1:38 PM - Electronically signed by Dusitn Prado M.D. JA: CARL Report ID: [id number] Reading Location: [id number] Social History Type Status Start Date End Date Code Code Syst em Smoking History Unknown if ever smoked [address] Sex Female Medications Medication Start Date End Date Route Frequency Dose Code Code System Medication Instructions Home Meds Albuterol Sulfate 0.5% Inhalation Solution 10/25/2021 Unknown INHALATION NEEDED 4 TIMES A DAY 1 unit(s) 953033 RxNorm 1 EACH INHALATION NEEDED 4 TIMES A DAY Ipratropium [place]-Albu terol Sulfate 0.5MG/3ML-3M G/3ML Inhalation Solution 10/25/2021 Unknown INHALATION EVERY 6 HOURS 3 unit(s) 7572902 RxNorm 3 EACH INHALATION EVERY 6 HOURS ProAir HFA 0.09MG/1Actu ation Inhalation Suspension 10/25/2021 Unknown INHALATION NEEDED 4 TIMES A DAY 2 unit(s) 374110 RxNorm 2 EACH INHALATION NEEDED 4 TIMES A DAY Symbicort 160/4.5 160MCG-4.5MC G/1 Actu Inhalation Aerosol Liquid 10/25/2021 Unknown INHALATION TWICE A DAY 2 unit(s) 2768115 RxNorm 2 EACH INHALATION TWICE A DAY Wellbutrin SR 150MG Oral Tablet, Extended Release, 12 HR 10/25/2021 Unknown ORAL TWICE A DAY 150 MILLIGRAMS 591145 RxNorm TAKE 150 MILLIGRAMS ORAL TWICE A DAY Meloxicam 15MG Oral Tablet 12/28/2021 Unknown ORAL ONCE A DAY 15 MILLIGRAMS 024454 RxNorm TAKE 15 MILLIGRAMS ORAL ONCE A DAY Omeprazole 40MG Oral Capsule, Delayed Release 04/01/2022 Unknown ORAL ONCE A DAY 40 MILLIGRAMS 414507 RxNorm TAKE 40 MILLIGRAMS ORAL ONCE A [...] Code Code System UNSPECIFIED ASTHMA, UNCOMPLICATED active 145055145 SNOMED-CT Allergies and Adverse Reactions Allergy Substance Reaction Severity Start Date Concern Status Co de Code System No Known Drug Allergies Active 560930379 SNOMED-CT Plan of Treatment Pinky Established Patient 025 CT Chest/Lung WO Contrast (17149) 09/10 Encounters Encounter Diagnosis Start Date Code Code Sys tem Abnormal findings on diagnos tic imaging of other abdominal regions, including retroperitoneum 10/30/2023 SNOMED-CT Personal Care Team Section Performer Name Performer Role Active Date Inactive Da te Imaging Narrative Notes
--- OUTSIDE RECORDS SUMMARY | 2024-08-27 11:03 | XMS_ITS ---
Author Organization Unknown Address [address] [place] [phone] Phone Care Team Providers Care Water Operator Name Role Phone SILVERIO SULLY Attending Unavailable [...] Smoking History Unknown if ever smoked [address] Sex Female Medications Medication Start Date End Date Route Frequency Dose Code Code System Medication Instructions Home Meds Albuterol Sulfate 0.5% Inhalation Solution 10/25/2021 Unknown INHALATION NEEDED 4 TIMES A DAY 1 unit(s) 173099 RxNorm 1 EACH INHALATION NEEDED 4 TIMES A DAY Ipratropium [place]-Albu terol Sulfate 0.5MG/3ML-3M G/3ML Inhalation Solution 10/25/2021 Unknown INHALATION EVERY 6 HOURS 3 unit(s) 8402591 RxNorm 3 EACH INHALATION EVERY 6 HOURS ProAir HFA 0.09MG/1Actu ation Inhalation Suspension 10/25/2021 Unknown INHALATION NEEDED 4 TIMES A DAY 2 unit(s) 024894 RxNorm 2 EACH INHALATION NEEDED 4 TIMES A DAY Symbicort 160/4.5 160MCG-4.5MC G/1 Actu Inhalation Aerosol Liquid 10/25/2021 Unknown INHALATION TWICE A DAY 2 unit(s) 8019451 RxNorm 2 EACH INHALATION TWICE A DAY Wellbutrin SR 150MG Oral Tablet, Extended Release, 12 HR 10/25/2021 Unknown ORAL TWICE A DAY 150 MILLIGRAMS 226918 RxNorm TAKE 150 MILLIGRAMS ORAL TWICE A DAY Meloxicam 15MG Oral Tablet 12/28/2021 Unknown ORAL ONCE A DAY 15 MILLIGRAMS 315010 RxNorm TAKE 15 MILLIGRAMS ORAL ONCE A DAY Omeprazole 40MG Oral Capsule, Delayed Release 04/01/2022 Unknown ORAL ONCE A DAY 40 MILLIGRAMS 141306 RxNorm TAKE 40 MILLIGRAMS ORAL ONCE A [...] Code Code System UNSPECIFIED ASTHMA, UNCOMPLICATED active 193622196 SNOMED-CT Allergies and Adverse Reactions Allergy Substance Reaction Severity Start Date Concern Status Co de Code System No Known Drug Allergies Active 474665202 SNOMED-CT Plan of Treatment Pinky Established Patient 025 CT Chest/Lung WO Contrast (37142) 09/10 Encounters Encounter Diagnosis Start Date Code Code Sys tem Chest pain, unspecified 01/27/2024 SNOM ED-CT Personal Care Team Section Performer Name Performer Role Active Date Inactive Da te
--- OUTSIDE RECORDS SUMMARY | 2024-08-27 11:03 | XMS_ITS ---
Author Organization Unknown Address [address] [place] [address] [phone] Phone Care Team Providers Care Manager Recruiting Name Role Phone JOSE R TALAMANTES Attending [...] free, adsorbed 02/28/1998 Completed 09 CVX Results DIG 3D ADELINA SCREENING EMILIANO AL - Completed: 08/09/2024 13:16 LOINC: \TM00\10PI\DRAo\BM09\ \MRLo\ [address] [address] ---------NAME--------- NUMBER SEX AGE ADMIT DISC. XRAY# F/C TYPE ALAN PAYNE [id number] F 39 08/09/24 08/09/24 20430 XB7 O/P DATE OF : 1985 M/R# [id number] PH#: [phone] RM \MRHx\ LOCATION: TRANSCRIBED: 08/09/24 13:24 DIG 3D ADELINA SCREENING [id number] COMPLETED:08/09/24 13:16 [id number] (REASONS-DIG 3D ADELINA SCREENING BILATERAL: screening PHYSICIAN: JOSE R R A D I O L O G Y R E P O R T PROCEDURE: SCREENING MAMMOGRAM WITH TOMOSYNTHESIS REASON FOR EXAM: screening COMPARISON: DIG 3D ADELINA SCREENING BILATERAL on DOS: 02/24/23 TECHNIQUE: Bilateral CC and MLO views obtained. Images were obtained using a Digital Tomosynthesis Unit. Standard 2D and 3D Tomosynthesis images were reviewed. This examination was analyzed using DeepField DBT/MMG, an AI software developed to enhance the effectiveness of breast cancer screening with mammography. FINDINGS: BREAST COMPOSITION: C - The breasts are heterogeneously dense, which may obscure small masses. In the right breast, no asymmetrical parenchymal pattern, architectural distortion, pleomorphic microcalcifications or masses. In the left breast, no asymmetrical parenchymal pattern, architectural distortion, pleomorphic microcalcifications or masses. IMPRESSION: No findings of malignancy. RECOMMENDATION: Recommend annual mammogram. ASSESSMENT: BIRADS: 1 - Negative UNITY DEVELOPMENT SPECIALIST \ITLo\ \UNDo\ \UNDx\ \ITLx\ Reviewed and Electronically Signed by: DCTNIAGumaro PARIKH Signed Date: SIGNDATE 08/09/24.1324. .to TALISHA MANCERA via fax Social History Type Status Start Date End Date Code Code Syst em Smoking History Unknown if ever smoked [address] Sex Female Medications Medication Start Date End Date Route Frequency Dose Code Code System Medication Instructions Home Meds Albuterol Sulfate 0.5% Inhalation Solution 10/25/2021 Unknown INHALATION NEEDED 4 TIMES A DAY 1 unit(s) 235292 RxNorm 1 EACH INHALATION NEEDED 4 TIMES A DAY Ipratropium [place]-Albu terol Sulfate 0.5MG/3ML-3M G/3ML Inhalation Solution 10/25/2021 Unknown INHALATION EVERY 6 HOURS 3 unit(s) 9525263 RxNorm 3 EACH INHALATION EVERY 6 HOURS ProAir HFA 0.09MG/1Actu ation Inhalation Suspension 10/25/2021 Unknown INHALATION NEEDED 4 TIMES A DAY 2 unit(s) 256167 RxNorm 2 EACH INHALATION NEEDED 4 TIMES A DAY Symbicort 160/4.5 160MCG-4.5MC G/1 Actu Inhalation Aerosol Liquid 10/25/2021 Unknown INHALATION TWICE A DAY 2 unit(s) 2296372 RxNorm 2 EACH INHALATION TWICE A DAY Wellbutrin SR 150MG Oral Tablet, Extended Release, 12 HR 10/25/2021 Unknown ORAL TWICE A DAY 150 MILLIGRAMS 651228 RxNorm TAKE 150 MILLIGRAMS ORAL TWICE A DAY Meloxicam 15MG Oral Tablet 12/28/2021 Unknown ORAL ONCE A DAY 15 MILLIGRAMS 445122 RxNorm TAKE 15 MILLIGRAMS ORAL ONCE A DAY Omeprazole 40MG Oral Capsule, Delayed Release 04/01/2022 Unknown ORAL ONCE A DAY 40 MILLIGRAMS 920519 RxNorm TAKE 40 MILLIGRAMS ORAL ONCE A [...] Code Code System UNSPECIFIED ASTHMA, UNCOMPLICATED active 834581494 SNOMED-CT Allergies and Adverse Reactions Allergy Substance Reaction Severity Start Date Concern Status Co de Code System No Known Drug Allergies Active 435744237 SNOMED-CT Plan of Treatment Pinky Established Patient 025 CT Chest/Lung WO Contrast (32933) 09/10 Encounters Encounter Diagnosis Start Date Code Code Sys tem Encounter for screening mamm ogram for malignant neoplasm of breast 08/09/2024 SNOMED-CT Personal Care Team Section Performer Name Performer Role Active Date Inactive Da te Imaging Narrative Notes [facility] 08/09/2024 13:[address] [address] ---------NAME--------- NUMBER SEX AGE ADMIT DISC. XRAY# F/C TYPE ALAN PAYNE [id number] F 39 08/09/24 08/09/24 [id number] XB7 O/P DATE OF : 1985 M/R# [id number] #: [phone] LOCATION: TRANSCRIBED: 08/09/24 13:24 DIG 3D ADELINA SCREENING [id number] COMPLETED:08/09/24 13:16 [id number] (REASONS-DIG 3D ADELINA SCREENING BILATERAL: screening PHYSICIAN: JOSE R R A D I O L O G Y R E P O R T PROCEDURE: SCREENING MAMMOGRAM WITH TOMOSYNTHESIS REASON FOR EXAM: screening COMPARISON: DIG 3D ADELINA SCREENING BILATERAL on DOS: 02/24/23 TECHNIQUE: Bilateral CC and MLO views obtained. Images were obtained using a Digital Tomosynthesis Unit. Standard 2D and 3D Tomosynthesis images were reviewed. This examination was analyzed using DeepField DBT/MMG, an [employer] software developed to enhance the effectiveness of breast cancer screening with mammography. FINDINGS: BREAST COMPOSITION: C - The breasts are heterogeneously dense, which may obscure small masses. In the right breast, no asymmetrical parenchymal pattern, architectural distortion, pleomorphic microcalcifications or masses. In the left breast, no asymmetrical parenchymal pattern, architectural distortion, pleomorphic microcalcifications or masses. IMPRESSION: No findings of malignancy. RECOMMENDATION: Recommend annual mammogram. ASSESSMENT: BIRADS: 1 - Negative UNITY DEVELOPMENT SPECIALIST Reviewed and Electronically Signed by: SHERYL PARIKH Signed Date: SIGNDATE
--- OUTSIDE RECORDS SUMMARY | 2024-08-27 11:03 | XMS_ITS ---
Author Organization Unknown Address [address] [place] [address] [phone] Phone Care Team Providers Care Storm Door Maker Name Role Phone HOLLI SAEED Attending Unavailable [...] Smoking History Unknown if ever smoked [id number] Sex Female Medications Medication Start Date End Date Route Frequency Dose Code Code System Medication Instructions Home Meds Albuterol Sulfate 0.5% Inhalation Solution 10/25/2021 Unknown INHALATION NEEDED 4 TIMES A DAY 1 unit(s) 914708 RxNorm 1 EACH INHALATION NEEDED 4 TIMES A DAY Ipratropium [place]-Albu terol Sulfate 0.5MG/3ML-3M G/3ML Inhalation Solution 10/25/2021 Unknown INHALATION EVERY 6 HOURS 3 unit(s) 0931559 RxNorm 3 EACH INHALATION EVERY 6 HOURS ProAir HFA 0.09MG/1Actu ation Inhalation Suspension 10/25/2021 Unknown INHALATION NEEDED 4 TIMES A DAY 2 unit(s) 269949 RxNorm 2 EACH INHALATION NEEDED 4 TIMES A DAY Symbicort 160/4.5 160MCG-4.5MC G/1 Actu Inhalation Aerosol Liquid 10/25/2021 Unknown INHALATION TWICE A DAY 2 unit(s) 6436811 RxNorm 2 EACH INHALATION TWICE A DAY Wellbutrin SR 150MG Oral Tablet, Extended Release, 12 HR 10/25/2021 Unknown ORAL TWICE A DAY 150 MILLIGRAMS 465063 RxNorm TAKE 150 MILLIGRAMS ORAL TWICE A DAY Meloxicam 15MG Oral Tablet 12/28/2021 Unknown ORAL ONCE A DAY 15 MILLIGRAMS 036002 RxNorm TAKE 15 MILLIGRAMS ORAL ONCE A DAY Omeprazole 40MG Oral Capsule, Delayed Release 04/01/2022 Unknown ORAL ONCE A DAY 40 MILLIGRAMS 836312 RxNorm TAKE 40 MILLIGRAMS ORAL ONCE A [...] Code Code System UNSPECIFIED ASTHMA, UNCOMPLICATED active 189916787 SNOMED-CT Allergies and Adverse Reactions Allergy Substance Reaction Severity Start Date Concern Status Co de Code System No Known Drug Allergies Active 579622498 SNOMED-CT Plan of Treatment Holli Established Patient 025 CT Chest/Lung WO Contrast (55574) 09/10 Personal Care Team Section Performer Name Performer Role Active Date Inactive Da te
--- OUTSIDE RECORDS SUMMARY | 2024-08-27 11:03 | XMS_ITS | Encounter Summary ---
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
--- OUTSIDE RECORDS SUMMARY | 2024-08-27 11:04 | XMS_ITS ---
Author Organization Unknown Address [address] [place] [address] [phone] Phone Care Team Providers Care Materials And Corrosion Engineer Name Role Phone SILVERIO SULLY Attending Unavailable [...] Smoking History Unknown if ever smoked [address] Sex Female Medications Medication Start Date End Date Route Frequency Dose Code Code System Medication Instructions Home Meds Albuterol Sulfate 0.5% Inhalation Solution 10/25/2021 Unknown INHALATION NEEDED 4 TIMES A DAY 1 unit(s) 106512 RxNorm 1 EACH INHALATION NEEDED 4 TIMES A DAY Ipratropium [place]-Albu terol Sulfate 0.5MG/3ML-3M G/3ML Inhalation Solution 10/25/2021 Unknown INHALATION EVERY 6 HOURS 3 unit(s) 3402234 RxNorm 3 EACH INHALATION EVERY 6 HOURS ProAir HFA 0.09MG/1Actu ation Inhalation Suspension 10/25/2021 Unknown INHALATION NEEDED 4 TIMES A DAY 2 unit(s) 284200 RxNorm 2 EACH INHALATION NEEDED 4 TIMES A DAY Symbicort 160/4.5 160MCG-4.5MC G/1 Actu Inhalation Aerosol Liquid 10/25/2021 Unknown INHALATION TWICE A DAY 2 unit(s) 8394068 RxNorm 2 EACH INHALATION TWICE A DAY Wellbutrin SR 150MG Oral Tablet, Extended Release, 12 HR 10/25/2021 Unknown ORAL TWICE A DAY 150 MILLIGRAMS 883829 RxNorm TAKE 150 MILLIGRAMS ORAL TWICE A DAY Meloxicam 15MG Oral Tablet 12/28/2021 Unknown ORAL ONCE A DAY 15 MILLIGRAMS 260930 RxNorm TAKE 15 MILLIGRAMS ORAL ONCE A DAY Omeprazole 40MG Oral Capsule, Delayed Release 04/01/2022 Unknown ORAL ONCE A DAY 40 MILLIGRAMS 080191 RxNorm TAKE 40 MILLIGRAMS ORAL ONCE A [...] Code Code System UNSPECIFIED ASTHMA, UNCOMPLICATED active 434930232 SNOMED-CT Allergies and Adverse Reactions Allergy Substance Reaction Severity Start Date Concern Status Co de Code System No Known Drug Allergies Active 206988868 SNOMED-CT Plan of Treatment Pinky Established Patient 025 CT Chest/Lung WO Contrast (08988) 09/10 Encounters Encounter Diagnosis Start Date Code Code Sys tem Chest pain 02/19/2024 03349266 SNOMED-CT Personal Care Team Section Performer Name Performer Role Active Date Inactive Da te
--- OUTSIDE RECORDS SUMMARY | 2024-08-27 11:04 | XMS_ITS | Clinical Summary ---
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 Gender Identity Not on file Sexual Orientation Not on file Last Filed Vital Signs Vital Sign Reading Time Taken Comments Blood Pressure - - Pulse - - Temperature - - Respiratory Rate - - Oxygen Saturation - - Inhaled Oxygen Concentration - - Weight 68 kg (150 lb) 08/11/2020 11:00 AM PROJECTION WELDING MACHINE OPERATOR Height 162.6 cm (5' 4 ) 08/11/2020 11:00 AM PROJECTION WELDING MACHINE OPERATOR Body Mass Index 25.75 08/11/2020 11:00 AM PROJECTION WELDING MACHINE OPERATOR Plan of Treatment Health Maintenance Due Date [...] patient's age to complete this topic Insurance [facility] Care Teams Director Automotive Relationship Specialty Start Date End Date Leonel Degroot MD [address] [place] [phone] PCP - General FAMILY PRACTICE 06/21/20
--- OUTSIDE RECORDS SUMMARY | 2024-08-27 11:04 | XMS_ITS ---
Author Organization Unknown Address [address] [place] [address] [phone] Phone Care Team Providers Care Software Release Engineer Name Role Phone STACYSUMIT LIANA Attending Unavailable TALISHA Hernandes Primary Unavailable [...] Smoking History Unknown if ever smoked [address] Sex Female Medications Medication Start Date End Date Route Frequency Dose Code Code System Medication Instructions Home Meds Albuterol Sulfate 0.5% Inhalation Solution 10/25/2021 Unknown INHALATION NEEDED 4 TIMES A DAY 1 unit(s) 886514 RxNorm 1 EACH INHALATION NEEDED 4 TIMES A DAY Ipratropium [place]-Albu terol Sulfate 0.5MG/3ML-3M G/3ML Inhalation Solution 10/25/2021 Unknown INHALATION EVERY 6 HOURS 3 unit(s) 1186203 RxNorm 3 EACH INHALATION EVERY 6 HOURS ProAir HFA 0.09MG/1Actu ation Inhalation Suspension 10/25/2021 Unknown INHALATION NEEDED 4 TIMES A DAY 2 unit(s) 763351 RxNorm 2 EACH INHALATION NEEDED 4 TIMES A DAY Symbicort 160/4.5 160MCG-4.5MC G/1 Actu Inhalation Aerosol Liquid 10/25/2021 Unknown INHALATION TWICE A DAY 2 unit(s) 5749099 RxNorm 2 EACH INHALATION TWICE A DAY Wellbutrin SR 150MG Oral Tablet, Extended Release, 12 HR 10/25/2021 Unknown ORAL TWICE A DAY 150 MILLIGRAMS 157243 RxNorm TAKE 150 MILLIGRAMS ORAL TWICE A DAY Meloxicam 15MG Oral Tablet 12/28/2021 Unknown ORAL ONCE A DAY 15 MILLIGRAMS 503865 RxNorm TAKE 15 MILLIGRAMS ORAL ONCE A DAY Omeprazole 40MG Oral Capsule, Delayed Release 04/01/2022 Unknown ORAL ONCE A DAY 40 MILLIGRAMS 783629 RxNorm TAKE 40 MILLIGRAMS ORAL ONCE A [...] Code Code System UNSPECIFIED ASTHMA, UNCOMPLICATED active 321126178 SNOMED-CT Allergies and Adverse Reactions Allergy Substance Reaction Severity Start Date Concern Status Co de Code System No Known Drug Allergies Active 542439705 SNOMED-CT Plan of Treatment [facility] Established Patient 025 CT Chest/Lung WO Contrast (15043) 09/10 Encounters Encounter Diagnosis Start Date Code Code Sys tem Hypersomnia 09/30/2023 12098139 SNOMED-CT Personal Care Team Section Performer Name Performer Role Active Date Inactive Da te Procedures Notes [facility] 10/05/2023 12:17 Patient name: Calista Phillips Date of Service: Referring physician: Leonel Fermin Dr. Indication: to assess for sleep apnea History: 38 year-old female, body weight 192 lbs, height 65 inches, BMI 31.9, was sent to have HSAT to assess for sleep apnea, has daytime sleepiness, shortness of breath, lung disease Methods: The study was recorded on a [employer] Voice night 1 device using 1 RI P [...] is required Matthew David MD FCCP Diplomate, [place] [employer]
--- OUTSIDE RECORDS SUMMARY | 2024-08-27 11:04 | XMS_ITS ---
Author Organization Unknown Address [address] [place] [address] [phone] Phone Care Team Providers Care Saw Setter Name Role Phone JULIA GAINES Attending Unavailable [...] Derek Goodwin D.O. AP: SIXTO Report ID: [id number] Reading Location: [place] [address] Social History Type Status Start Date End Date Code Code Syst em Smoking History Unknown if ever smoked [address] Sex Female Medications Medication Start Date End Date Route Frequency Dose Code Code System Medication Instructions Home Meds Albuterol Sulfate 0.5% Inhalation Solution 10/25/2021 Unknown INHALATION NEEDED 4 TIMES A DAY 1 unit(s) 486544 RxNorm 1 EACH INHALATION NEEDED 4 TIMES A DAY Ipratropium [place]-Albu terol Sulfate 0.5MG/3ML-3M G/3ML Inhalation Solution 10/25/2021 Unknown INHALATION EVERY 6 HOURS 3 unit(s) 6979782 RxNorm 3 EACH INHALATION EVERY 6 HOURS ProAir HFA 0.09MG/1Actu ation Inhalation Suspension 10/25/2021 Unknown INHALATION NEEDED 4 TIMES A DAY 2 unit(s) 389809 RxNorm 2 EACH INHALATION NEEDED 4 TIMES A DAY Symbicort 160/4.5 160MCG-4.5MC G/1 Actu Inhalation Aerosol Liquid 10/25/2021 Unknown INHALATION TWICE A DAY 2 unit(s) 7847549 RxNorm 2 EACH INHALATION TWICE A DAY Wellbutrin SR 150MG Oral Tablet, Extended Release, 12 HR 10/25/2021 Unknown ORAL TWICE A DAY 150 MILLIGRAMS 619268 RxNorm TAKE 150 MILLIGRAMS ORAL TWICE A DAY Meloxicam 15MG Oral Tablet 12/28/2021 Unknown ORAL ONCE A DAY 15 MILLIGRAMS 967670 RxNorm TAKE 15 MILLIGRAMS ORAL ONCE A DAY Omeprazole 40MG Oral Capsule, Delayed Release 04/01/2022 Unknown ORAL ONCE A DAY 40 MILLIGRAMS 286465 RxNorm TAKE 40 MILLIGRAMS ORAL ONCE A [...] Code Code System UNSPECIFIED ASTHMA, UNCOMPLICATED active 820393103 SNOMED-CT Allergies and Adverse Reactions Allergy Substance Reaction Severity Start Date Concern Status Co de Code System No Known Drug Allergies Active 878690099 SNOMED-CT Plan of Treatment Pinky Established Patient 025 CT Chest/Lung WO Contrast (23448) 09/10 Encounters Encounter Diagnosis Start Date Code Code Sys tem Unspecified asthma, uncomplicated 09/29/2023 SNOMED-CT Personal Care Team Section Performer Name Performer Role Active Date Inactive Da te Imaging Narrative Notes
--- OUTSIDE RECORDS SUMMARY | 2024-08-27 11:05 | XMS_ITS | Clinical Summary ---
Author Organization [facility] Lilaina batista Jessica Address [address] [facility] [address] Care Team Providers Care Farmworker [employer] Name Role Phone Leonel Degroot MD Primary Care Provider [phone] Allergies No known active allergies Medications budesonide-formot [...] HCl (WELLBUTRIN ORAL) Take by mouth. Active famotidine (PEPCID) 20 mg tablet Take 20 mg by mouth daily. Active meloxicam (MOBIC) 15 mg tablet Take 15 mg by mouth daily. Active Active Problems No known active problems Encounters Date Type Department Care Team Description 08/27/2024 11:00 AM COMMUNITY ARTS WORKER Office Visit [facility] Oncology and Hematology - [place] [address] [place] [address] Lv Landis MD Arrived 08/24/2024 External Device Data STL ABSTRACTION Provider, Abstract 08/03/2024 Orders Only [facility] Oncology and Hematology - [place] [address] [place] [phone] Lv Landis MD 07/28/2024 External Device Data STL ABSTRACTION Provider, [...] Sign Reading Time Taken Comments Blood Pressure 110/76 08/27/2024 10:58 AM COMMUNITY ARTS WORKER Pulse 76 08/27/2024 10:58 AM COMMUNITY ARTS WORKER Temperature 36.6 C (97.8 F) 08/27/2024 10:58 AM COMMUNITY ARTS WORKER Respiratory Rate 15 08/27/2024 10:58 AM COMMUNITY ARTS WORKER Oxygen Saturation 96% 08/27/2024 10:58 AM COMMUNITY ARTS WORKER Inhaled Oxygen Concentration - - Weight 87.3 kg (192 lb 6.4 oz) 08/27/2024 10:58 AM COMMUNITY ARTS WORKER Height 162.6 cm (5' 4 ) 12/08/2023 10:52 AM CDT Body Mass Index 33.03 12/08/2023 10:52 AM CDT Plan of Treatment Health Maintenance Due Date Last Done Comments Pre-Diabetes and Diabetes Screening 1985 DTAP/TDAP/TD VACCINES (6 - Tdap) 1994 10/16/1988, 04/11/1987, 08/25/1984, Additional history exists Preventative Visit-Managed Medicaid 2002 CERVICAL CANCER SCREENING 2013 BREAST CANCER SCREENING 2023 INFLUENZA VACCINE (#1) 2024 HEPATITIS B VACCINES Completed 03/03/2001, 03/28/1998, 02/28/1998 HPV VACCINES Aged Out No longer eligi ble based on patient's age to complete this topic Procedures Procedure Name Priority Date/Time Associated Diagnosis Comments CT ABDOMEN PELVIS W CONTRAST Routine 08/03/2024 10:50 AM COMMUNITY ARTS WORKER from Last 3 Months Results * CT ABDOMEN PELVIS W CONTRAST (08/03/2024 10:50 AM COMMUNITY ARTS WORKER) Anatomical Region Laterality Modality Abdomen Other Lv Landis MD CT ORDERABLES Final Result from Last 3 Months Insurance [facility] MEDICA[facility] Care Teams Farmworker [employer] Farm Relationship Specialty Start Date End Date Leonel Degroot MD [address] [place] [address] PCP - General Family Practice 12/08/23
--- OUTSIDE RECORDS SUMMARY | 2024-08-27 11:05 | XMS_ITS ---
Author Organization Unknown Address [address] [place] [phone] Phone Care Team Providers Care Lube Man Name Role Phone JOSÉ MIGUEL AGUILAR Attending [...] DIFF - Collect Date/T yoel: 06/03/2023 10:55 [facility] ID: [id number] [place] [address], [phone] LOINC: 56641-5 Test Value Unit Reference Range Code Code System Flag WBC 10.5 10^3uL L=4.8 H=10.8 RBC 4.45 10^6uL L=4.20 H=5.40 HEMOGLOBIN 14.1 g/dL L=12.0 H=16.0 718-7 LOINC HEMATOCRIT 40.9 VOL% L=37.0 H=47.0 4544-3 LOINC MCV 91.9 fL L=81.0 H=99.0 MCH 31.7 pg L=27.0 H=32.0 MCHC 34.5 g/dL L=32.0 H=36.0 PLATELETS 353 10^3uL L=100 H=400 59813-1 LOINC RDW 12.2 % L=11.7 H=15.5 %GRAN 63.7 % L=40.0 H=70.0 10651-5 LOINC %LYMPH 27.5 % L=20.0 H=45.0 736-9 LOINC %MONO 6.0 % L=2.0 H=10.0 98641-1 LOINC %EOS 2.1 % L=0.0 H=6.0 713-8 LOINC %BASO 0.4 % L=0.0 H=3.0 706-2 LOINC #NEUT 6.7 10^3uL L=1.9 H=7.6 37689-0 LOINC #LYMPH 2.9 10^3uL L=0.9 H=4.9 41713-0 LOINC #MONO 0.6 10^3uL L=0.1 H=0.9 13543-0 LOINC #EOS 0.2 10^3uL L=0.0 H=0.6 712-0 LOINC #BASO 0.04 10^3uL L=0.00 H=0.10 82250-5 LOINC #IM GRANS 0.0 10^3uL L=0.0 H=7.0 51737-2 LOINC %IM GRANS 0.3 % L=0.0 H=5.0 84461-2 LOINC %NRB 0.0 L=0.0 H=0.2 50049-7 LOINC #NRB 0.000 L=0.000 H=0.012 20360-6 LOINC MANUAL DIFF NOT INDICATED RBC MORPH NOT INDICATED COMPREHENSIVE METABOLIC PANE L - Collect Date/Time: 06/03/2023 10:55 [facility] ID: [id number] [address] [place], [place], [id number] LOINC: 39964-3 Test Value Unit Reference Range Code Code [...] 2028-9 LOINC ANION GAP 11 L=10 H=20 74841-2 LOINC OSMOLALITY 281 mOs/kG L=280 H=296 09917-9 LOINC BUN/CREAT 32.0 3097-3 LOINC CALCIUM 8.8 mg/dL L=8.3 H=10.5 19652-6 LOINC AST 25 U/L L=15 H=46 1920-8 LOINC ALT 32 U/L L=9 H=72 1742-6 LOINC ALKALINE PHOS 49 U/L L=38 H=126 6768-6 LOINC TOTAL BILI 0.5 mg/dL L=0.2 H=1.3 1975-2 LOINC ALBUMIN 4.5 G/dL L=3.5 H=5.0 1751-7 LOINC TOTAL PROTEIN 7.7 g/L L=6.3 H=8.2 2885-2 LOINC A/G RATIO 1.4 52030-5 LOINC AGE 37 17413-1 LOINC eGFR NON-AFR 146 ml/min eGFR AFR AMER 177 ml/min US VENOUS LEFT UE - Complete d: 06/03/2023 11:22 LOINC: 22636-0 EXAM DESCRIPTION: US VENOUS LEFT UE HISTORY: [...] by Keaton Norris M.D. JR: Report ID: [id number] Reading Location: [id number] Social History Type Status Start Date End Date Code Code Syst em Smoking History Unknown if ever smoked [address] Sex Female Medications Medication Start Date End Date Route Frequency Dose Code Code System Medication Instructions Home Meds Albuterol Sulfate 0.5% Inhalation Solution 10/25/2021 Unknown INHALATION NEEDED 4 TIMES A DAY 1 unit(s) 582697 RxNorm 1 EACH INHALATION NEEDED 4 TIMES A DAY Ipratropium [place]-Albu terol Sulfate 0.5MG/3ML-3M G/3ML Inhalation Solution 10/25/2021 Unknown INHALATION EVERY 6 HOURS 3 unit(s) 1332229 RxNorm 3 EACH INHALATION EVERY 6 HOURS ProAir HFA 0.09MG/1Actu ation Inhalation Suspension 10/25/2021 Unknown INHALATION NEEDED 4 TIMES A DAY 2 unit(s) 526814 RxNorm 2 EACH INHALATION NEEDED 4 TIMES A DAY Symbicort 160/4.5 160MCG-4.5MC G/1 Actu Inhalation Aerosol Liquid 10/25/2021 Unknown INHALATION TWICE A DAY 2 unit(s) 7583457 RxNorm 2 EACH INHALATION TWICE A DAY Wellbutrin SR 150MG Oral Tablet, Extended Release, 12 HR 10/25/2021 Unknown ORAL TWICE A DAY 150 MILLIGRAMS 895467 RxNorm TAKE 150 MILLIGRAMS ORAL TWICE A DAY Meloxicam 15MG Oral Tablet 12/28/2021 Unknown ORAL ONCE A DAY 15 MILLIGRAMS 792764 RxNorm TAKE 15 MILLIGRAMS ORAL ONCE A DAY Omeprazole 40MG Oral Capsule, Delayed Release 04/01/2022 Unknown ORAL ONCE A DAY 40 MILLIGRAMS 682692 RxNorm TAKE 40 MILLIGRAMS ORAL ONCE A [...] Code Code System UNSPECIFIED ASTHMA, UNCOMPLICATED active 583272045 SNOMED-CT Allergies and Adverse Reactions Allergy Substance Reaction Severity Start Date Concern Status Co de Code System No Known Drug Allergies Active 810970783 SNOMED-CT Plan of Treatment Pinky Established Patient 025 CT Chest/Lung WO Contrast (20839) 09/10 Encounters Encounter Diagnosis Start Date Code Code Sys tem Pain in left upper arm 06/03/2023 SNOME D-CT Personal Care Team Section Performer Name Performer Role Active Date Inactive Da te Imaging Narrative Notes
--- OUTSIDE RECORDS SUMMARY | 2024-08-27 11:05 | XMS_ITS ---
Author Organization Unknown Address [address] [place] [address] [phone] Phone Care Team Providers Care Slat Grader Name Role Phone STACYSUMIT LIANA Attending Unavailable [...] Smoking History Unknown if ever smoked [id number] Sex Female Medications Medication Start Date End Date Route Frequency Dose Code Code System Medication Instructions Home Meds Albuterol Sulfate 0.5% Inhalation Solution 10/25/2021 Unknown INHALATION NEEDED 4 TIMES A DAY 1 unit(s) 643365 RxNorm 1 EACH INHALATION NEEDED 4 TIMES A DAY Ipratropium [place]-Al[place] terol Sulfate 0.5MG/3ML-3M G/3ML Inhalation Solution 10/25/2021 Unknown INHALATION EVERY 6 HOURS 3 unit(s) 8963873 RxNorm 3 EACH INHALATION EVERY 6 HOURS ProAir HFA 0.09MG/1Actu ation Inhalation Suspension 10/25/2021 Unknown INHALATION NEEDED 4 TIMES A DAY 2 unit(s) 512029 RxNorm 2 EACH INHALATION NEEDED 4 TIMES A DAY Symbicort 160/4.5 160MCG-4.5MC G/1 Actu Inhalation Aerosol Liquid 10/25/2021 Unknown INHALATION TWICE A DAY 2 unit(s) 4473192 RxNorm 2 EACH INHALATION TWICE A DAY Wellbutrin SR 150MG Oral Tablet, Extended Release, 12 HR 10/25/2021 Unknown ORAL TWICE A DAY 150 MILLIGRAMS [id number] RxNorm TAKE 150 MILLIGRAMS ORAL TWICE A DAY Meloxicam 15MG Oral Tablet 12/28/2021 Unknown ORAL ONCE A DAY 15 MILLIGRAMS [id number] RxNorm TAKE 15 MILLIGRAMS ORAL ONCE A DAY Omeprazole 40MG Oral Capsule, Delayed Release 04/01/2022 Unknown ORAL ONCE A DAY 40 MILLIGRAMS [id number] RxNorm TAKE 40 MILLIGRAMS ORAL ONCE A [...] Code Code System UNSPECIFIED ASTHMA, UNCOMPLICATED active 649202382 SNOMED-CT Allergies and Adverse Reactions Allergy Substance Reaction Severity Start Date Concern Status Co de Code System No Known Drug Allergies Active 791327713 SNOMED-CT Plan of Treatment Pinky Established Patient 025 CT Chest/Lung WO Contrast (33968) 09/10 Encounters Encounter Diagnosis Start Date Code Code Sys tem Uncomplicated asthma 10/06/2023 [id number] SNOMED- CT Personal Care Team Section Performer Name Performer Role Active Date Inactive Da te
--- OUTSIDE RECORDS SUMMARY | 2024-08-27 11:05 | XMS_ITS ---
Author Organization Unknown Address [address] [place] [address] [phone] Phone Care Team Providers Care Maintenance Painter Name Role Phone JEAN CLAUDE SULLY Attending [...] Smoking History Unknown if ever smoked [id number] Sex Female Medications Medication Start Date End Date Route Frequency Dose Code Code System Medication Instructions Home Meds Albuterol Sulfate 0.5% Inhalation Solution 10/25/2021 Unknown INHALATION NEEDED 4 TIMES A DAY 1 unit(s) 427380 RxNorm 1 EACH INHALATION NEEDED 4 TIMES A DAY Ipratropium [place]-Albu terol Sulfate 0.5MG/3ML-3M G/3ML Inhalation Solution 10/25/2021 Unknown INHALATION EVERY 6 HOURS 3 unit(s) 0368859 RxNorm 3 EACH INHALATION EVERY 6 HOURS ProAir HFA 0.09MG/1Actu ation Inhalation Suspension 10/25/2021 Unknown INHALATION NEEDED 4 TIMES A DAY 2 unit(s) 837837 RxNorm 2 EACH INHALATION NEEDED 4 TIMES A DAY Symbicort 160/4.5 160MCG-4.5MC G/1 Actu Inhalation Aerosol Liquid 10/25/2021 Unknown INHALATION TWICE A DAY 2 unit(s) 0659665 RxNorm 2 EACH INHALATION TWICE A DAY Wellbutrin SR 150MG Oral Tablet, Extended Release, 12 HR 10/25/2021 Unknown ORAL TWICE A DAY 150 MILLIGRAMS [id number] RxNorm TAKE 150 MILLIGRAMS ORAL TWICE A DAY Meloxicam 15MG Oral Tablet 12/28/2021 Unknown ORAL ONCE A DAY 15 MILLIGRAMS 053502 RxNorm TAKE 15 MILLIGRAMS ORAL ONCE A DAY Omeprazole 40MG Oral Capsule, Delayed Release 04/01/2022 Unknown ORAL ONCE A DAY 40 MILLIGRAMS 475949 RxNorm TAKE 40 MILLIGRAMS ORAL ONCE A [...] Code Code System UNSPECIFIED ASTHMA, UNCOMPLICATED active [id number] SNOMED-CT Allergies and Adverse Reactions Allergy Substance Reaction Severity Start Date Concern Status Co de Code System No Known Drug Allergies Active 187210583 SNOMED-CT Plan of Treatment Abdulfattah Established Patient 025 CT Chest/Lung WO Contrast (10908) 09/10 Encounters Encounter Diagnosis Start Date Code Code Sys tem Chest pain 03/09/2024 64937646 SNOMED-CT Personal Care Team Section Performer Name Performer Role Active Date Inactive Da te Imaging Narrative Notes [facility] 03/12/2024 14:42 [facility] [address] [place], [place] [address] RADIOLOGY REPORT Patient Number: [id number] Patient Name: ALAN PAYNE Type: O/P MR Number: [id number] : 1985 Age: 38 Sex: F Room #: Admit Date: 03/09/24 Discharge Date 03/09/24 Ordering Physician: JEAN CLAUDE VIRK Family Physician: TALISHA MANCERA Second Physician: X-Ray Number : [id number] US ECHO W/ COLOR [id number] COMPLETE:03/09/24 15:34 APC [id number] (REASON-ECHO COMPLTE: CHEST PAIN See Scanned Image Attachment for Report Dictated By: Melonie Initials: Trans Date: 03/12/24 14:42 <<REPDIST>>
[2024-08-27 13:46] LABS: Alanine Aminotransferase 30 U/L (6-35); Albumin Level 4.2 g/dL (3.5-5.1); Alkaline Phosphatase 52 U/L (38-126); Anion Gap 11 mmol/L (4-12); Aspartate Amino Transferase 20 U/L (14-36); Bilirubin,Total 0.4 mg/dL (0.2-1.3); Blood Urea Nitrogen 8 mg/dL (7-17); Calcium 9.3 mg/dL (8.4-10.2); Carbon Dioxide 23 mmol/L (22-30); Chloride 105 mmol/L (98-107); Estimated Glomerular Filt Rate > 60; Glucose 87 mg/dL (65-110); Potassium 4.3 mmol/L (3.4-5.0); Sodium 139 mmol/L (137-145)
== END 2024-08-27 10:29 | disposition home or self-care (01) ==
LOC: ANHLAB 10:29
PROVIDERS: PCP Family Medicine; Visit Provider Internal Medicine Hematology & Oncology
DX: D18.1 Lymphangioma, any site (principal)
CPT/HCPCS: 36415; 80047; 80053; 85025